=== PATIENT | female | born 1945 | race Asian ===

== ENCOUNTER → 2016-09-23 | Outpatient (CLI) | payer MEDICARE, OTHER | LOC: RAD 07:57 | PROVIDERS: ATTEND Internal Medicine | DX: C34.12 Malignant neoplasm of upper lobe, left bronchus or lung (principal) | CPT/HCPCS: 71260; 82565 ==

== ENCOUNTER → 2016-10-13 | Outpatient (CLI) | payer MEDICARE, OTHER | LOC: WI 18:04 | PROVIDERS: ATTEND Internal Medicine | DX: C34.12 Malignant neoplasm of upper lobe, left bronchus or lung (principal) | CPT/HCPCS: 78815; A9552 ==

== ENCOUNTER → 2016-11-13 | Outpatient (CLI) | payer MEDICARE, OTHER ==
[~2016-11-13] MED LIST: ALBUTEROL SULFATE 0.083% NEB 2.5 MG/3 ML AMPUL NEB ONE
--- NOTE | 2016-11-15 12:03 | PULMONARY FUNCTION TEST ---
DATE OF SERVICE: 11/13/2016 THE VITAL CAPACITY IS SEVERELY DECREASED. THE EXPIRATORY FLOW RATES ARE SEVERELY DECREASED. THE FEV1/VC IS 66%, PREDICTED: 82% LUNG VOLUMES BY NITROGEN WASH OUT METHOD SHOW: TLC IS 87% OF PREDICTED FRC IS 113% OF PREDICTED RV IS 149% OF PREDICTED THE DLCO IS 9.5, 66% OF PREDICTED. THE RV/TLC RATIO IS 69% PREDICTED 40% AFTER BRONCHODILATOR, EXPIRATORY FLOW RATES SHOW NO SIGNIFICANT CHANGE. IMPRESSION: GOOD PATIENT EFFORT. SEVERE OBSTRUCTIVE DEFECT. THE SEVERE INCREASE IN RV/TLC RATIO INDICATES SIGNIFICANT AIR TRAPPING. DIFFUSING CAPACITY IS MODERATELY DECREASED. CC: LATASHA ANGULO MD > JOSE M
== END ==
LOC: RT 12:14
PROVIDERS: ATTEND Obstetrics & Gynecology
DX: R91.8 Other nonspecific abnormal finding of lung field (principal)
CPT/HCPCS: 94729 ×2; 94727 ×2; 94060 ×2; A9270

== ENCOUNTER → 2017-06-17 | Outpatient (CLI) | payer MEDICARE, OTHER ==
--- NOTE | 2017-06-17 15:55 | WOMENS IMAGING REPORT ---
EXAM DESCRIPTION: 3D SCREENING MAMMO BILAT COMPLETED DATE/TIME: 06/17/2017 3:07 pm REASON FOR STUDY: ROUTINE SCREENING; Z12.31 Z12.31 ENCNTR SCREEN MAMMOGRAM FOR MALIGNANT NEOPLASM O F ROMAIN COMPARISON: Multiple since 2013 TECHNIQUE: Standard craniocaudal and mediolateral oblique views of each breast recorded using digita l acquisition and breast tomosynthesis. LIMITATIONS: None. FINDINGS: No masses, calcifications or architectural distortion. No areas of suspicion. Read with the assistance of CAD. .[facility] - R2 Cenova Version 1.3 .[facility] - R2 Cenova Version 1.3 .[facility] - R2 Cenova Version 2.4 .[facility] - R2 Cenova Version 2.4 .[facility] - R2 [employer] Loader Version 9.2 IMPRESSION: NORMAL MAMMOGRAM. BIRADS 1. BREAST DENSITY: d. The breasts are extremely dense, which lowers the sensitivity of mammography. BIRAD: 1 NEGATIVE RECOMMENDATION: ROUTINE SCREENING COMMENT: The patient has been notified of the results by letter per SA requirements. Additional no tification policies are in place for contacting patient with suspicious or incomplete findings. Quality ID #[id number]: The [employer] recommends an annual screening mammogram for women aged 40 years or over. This facility utilizes a reminder system to ensure that all patients receive reminder letters, and/or direct phone calls for appointments. This includes reminders for routine scr eening mammograms, diagnostic mammograms, or other Breast Imaging Interventions when appropriate. Th is patient will be placed in the appropriate reminder system. The [employer] [employer] (ACR) has developed recommendations for screening MRI of the breast s in certain patient populations, to be used in conjunction with mammography. Breast MRI surveillanc e may be appropriate for women with more than 20% lifetime risk of developing breast cancer as deter mined by genetic testing, significant family history of the disease, or history of mantle radiation f or Hodgkins Disease. ACR Practice Guidelines 2008. DBT Technology DBT is a type of tomographic mammography. With conventional mammography, overlapping breast tissue ma y make lesions difficult to detect, even with good compression. DBT uses an x-ray tube that rotates a round the breast, taking images at different angles. These images are then combined to create thin sl ices of the breast that the radiologist can view as a 3D reconstruction. The [employer] unit can perform full-field digital mammograms (2D imaging); or DBT (3D imaging); or both, in a combination mode that quickly performs both the mammogram and the tomosynthesis scan while the breast is still compressed. PQRS 6045F: Fluoroscopic imaging is not utilized for breast tomosynthesis. TECHNICAL DOCUMENTATION: FINDING NUMBER: (1) ASSESSMENT: (1) JOB ID: [id number] [employer]- All Rights Reserved
== END ==
LOC: WI 14:54
PROVIDERS: ATTEND Internal Medicine
DX: Z12.31 Encounter for screening mammogram for malignant neoplasm of breast (principal)
CPT/HCPCS: 77063; G0202; 77067

== ENCOUNTER → 2017-08-06 | Outpatient (CLI) | payer MEDICARE, OTHER ==
--- NOTE | 2017-08-06 15:51 | WOMENS IMAGING REPORT ---
EXAM DESCRIPTION: BONE DENSITY HIP/SPINE COMPLETED DATE/TIME: 08/06/2017 10:51 am REASON FOR STUDY: OSTEOPROSIS; M81.0 M81.0 AGE-RELATED OSTEOPOROSIS W/O CURRENT PATHOLOGICAL FRAC COMPARISON: 04/05/2015 TECHNIQUE: Dual-Energy X-ray Absorptiometry (DEXA) of the AP Spine and Hip. LIMITATIONS: None. FINDINGS: LUMBAR SPINE: The bone mineral density (BMD) measured from L1-L4 in the AP projection correlates with a T-score of -2.5, previously -1.9, which is osteoporosis as defined by the World Health Organization. HIP: The bone mineral density (BMD) measured in the left hip correlates with a T-score of -3.2, previously -2.9, which is osteoporosis as defined by the World Health Organization. IMPRESSION: 1. LUMBAR SPINE: OSTEOPOROSIS. 2. HIP: OSTEOPOROSIS. COMMENT: The World Health Organization defines low BMD as follows: T-score: Normal: Greater than -1.0 Osteopenia: Between -1.0 and -2.5 Osteoporosis: Less than -2.5 without fractures Established osteoporosis: Less than -2.5 with fractures In general, you may wish to consider: Diagnosis Treatment Follow-up DEXA Normal BMD Prevention 2-3 years Osteopenia Prevention/Therapy 1-2 years Osteoporosis Therapy Yearly TECHNICAL DOCUMENTATION: JOB ID: [id number]- All Rights Reserved
== END ==
LOC: WI 10:13
PROVIDERS: ATTEND Internal Medicine
DX: M81.0 Age-related osteoporosis without current pathological fracture (principal)
CPT/HCPCS: 77080

== ENCOUNTER → 2017-08-17 | Outpatient (CLI) | payer MEDICARE, OTHER ==
--- NOTE | 2017-08-18 10:30 | RADIOLOGY REPORT (SQ) ---
EXAM DESCRIPTION: PET CT SKULL/THIGH COMPLETED DATE/TIME: 08/17/2017 5:51 pm REASON FOR STUDY: LUNG CANCER C34.12 MALIGNANT NEOPLASM OF UPPER LOBE, LEFT BRONCHUS OR GRAHAM COMPARISON: 05/11/2017 and 10/13/2016. RADIONUCLIDE AND DOSE: 10.0 mCi F18 FDG The route of agent administration: Intravenous FASTING BLOOD SUGAR: 81 mg/dl CONTRAST TYPE AND DOSE: No CT contrast given. TECHNIQUE: Blood glucose level was verified. Above dose of FDG was injected intravenously. 2-D seg mented attenuation correction images were obtained from the base of the skull to the midthighs. Nonc ontrast CT images were obtained for attenuation correction and fusion with emission images. CT image s were performed without oral or intravenous contrast and are not sensitive for parenchymal lesions. A series of overlapping emission PET images were obtained. Images reviewed and manipulated at [facility] work station by the radiologist. Images stored on PACS. LIMITATIONS: None. FINDINGS: HEAD AND NECK: No areas of abnormal metabolic activity in the soft tissues of the head and neck. CHEST: Again seen are surgical changes in the left lung. Previously seen masses along the surgical s utures with increased activity are no longer present. There are now a few scattered ground-glass nod ular densities in both lungs. Most of these demonstrate no increased activity or minimally above bas diogenes. The more prominent areas are in the right lung (image 71). 12 mm lesion with mean SUV 2.63 a nd maximum SUV 2.88. More posterior lesion measuring 11 mm with mean SUV 1.63 and maximum SUV 1.98. ABDOMEN AND PELVIS: No areas of abnormal metabolic activity in the abdomen or pelvis. Expected physi ologic activity is present in the genitourinary system and bowel. PROXIMAL LOWER EXTREMITIES: No areas of abnormal metabolic activity in the soft tissues of the lower extremities. BONES: No abnormal metabolic activity in the visualized skeleton. ADDITIONAL CT FINDINGS: No additional significant findings on the noncontrast CT images. OTHER: No other significant findings. IMPRESSION: PREVIOUSLY SEEN LESIONS WITH INCREASED ACTIVITY IN THE LEFT LUNG AT THE SURGICAL SITE AR E NO LONGER PRESENT. THERE ARE A FEW ILL-DEFINED GROUND-GLASS DENSITIES IN BOTH LUNGS DESCRIBED. MORE PROMINENT AREAS IN THE RIGHT LUNG HAVE MINIMALLY INCREASED ACTIVITY. THESE FINDINGS ARE NONSPE CIFIC AND COULD BE DUE TO ACUTE INFLAMMATION/ PNEUMONITIS. EARLY METASTATIC INVOLVEMENT CANNOT BE EX CLUDED. OTHERWISE NO OTHER SIGNIFICANT FINDINGS IN THE HEAD, NECK, ABDOMEN, OR PELVIS. TECHNICAL DOCUMENTATION: JOB ID: [id number] [employer]- All Rights Reserved
== END ==
LOC: RAD 15:28
PROVIDERS: ATTEND Internal Medicine
DX: C34.12 Malignant neoplasm of upper lobe, left bronchus or lung (principal)
CPT/HCPCS: 78815; A9552

== ENCOUNTER 2017-10-10 16:21 | Observation (INO) | payer MEDICARE, OTHER ==
[2017-10-10] MEDS ORDERED: ONDANSETRON HCL INJ/PF 4 MG/2 ML SDV IV ONE (16:57)
[2017-10-10] MEDS ORDERED: FENTANYL CITRATE INJ/PF 100 MCG/2 ML AMPUL IV ONE (16:57)
[2017-10-10] MEDS ORDERED: NORMAL SALINE 1000 ML 1,000 ML IV ONE (16:58)
--- NOTE | 2017-10-10 17:00 | ER Document Report ---
ED Medical Screen (RME) - General Chief Complaint: Vomiting Stated Complaint: VOMITING Time Seen by Provider: 10/10/17 16:53 Notes: RME DISCLOSURE I have seen this patient as part of a Rapid Medical Evaluation and, if applicable, placed any initially appropriate orders. The patient will be seen and fully evaluated, including a full history and physical exam, by a provider ( in Main ED or Fast Track) when a room becomes available. 71-year-old female stage IV liver cancer survivor here with complaints of nausea vomiting diarrhea abdominal pain ongoing for the past few days. states she has had some weight loss as well. She is unable to keep anything down. She is currently taking a chemotherapy pill to keep the cancer away. EXAM Moderate epigastric tenderness to palpation TRAVEL OUTSIDE OF THE [place] IN LAST 30 DAYS: No - Related Data Allergies/Adverse Reactions: No Known Allergies Allergy (Verified 10/10/17 16:24) Past Medical History - Past Medical History Cardiac Medical History: Reports: Hx Hypertension Denies: Hx Coronary Artery Disease, Hx Heart Attack Pulmonary Medical History: Denies: Hx Asthma, Hx Bronchitis, Hx COPD, Hx Pneumonia Neurological Medical History: Denies: Hx Cerebrovascular Accident, Hx Seizures GI Medical History: Denies: Hx Hepatitis, Hx Hiatal Hernia, Hx Ulcer Musculoskeltal Medical History: Denies Hx Arthritis Infectious Medical History: Denies: Hx Hepatitis Past Surgical History: Denies: Hx Hysterectomy, Hx Mastectomy, Hx Open Heart Surgery, Hx Pacemaker - Immunizations Hx Diphtheria, Pertussis, Tetanus Vaccination: No Physical Exam - Vital signs Vitals: Temp Pulse Resp BP Pulse Ox 97.6 F 59 L 14 144/83 H 95 10/10/17 16:28 10/10/17 16:28 10/10/17 16:28 10/10/17 16:28 10/10/17 16:28 Course - Vital Signs Vital signs: Temp Pulse Resp BP Pulse Ox 97.6 F 59 L 14 144/83 H 95 10/10/17 16:28 10/10/17 16:28 10/10/17 16:28 10/10/17 16:28 10/10/17 16:28
[2017-10-10 17:28] LABS: ABSOLUTE EOSINOPHILS # (AUTO) 0.2 10^3/uL (0.0-0.6); ABSOLUTE LYMPHOCYTES (AUTO) 0.6 10^3/uL (0.5-4.7); ABSOLUTE MONOCYTES (AUTO) 0.3 10^3/uL (0.1-1.4); ABSOLUTE NEUT (AUTO) 3.4 10^3/uL (1.7-8.2); BASOPHILS % (AUTO) 0.3 % (0-2); EOSINOPHILS % (AUTO) 4.3 % (0-6); HEMATOCRIT 37.9 % (36.0-47.0); HEMOGLOBIN 12.7 g/dL (12.0-15.5); LYMPHOCYTES % (AUTO) 13.4 % (13-45); MEAN CORPUSCULAR HEMOGLOBIN 32.5 pg (27.0-33.4); MEAN CORPUSCULAR HGB CONC 33.4 g/dL (32.0-36.0); MEAN CORPUSCULAR VOLUME 97 fl (80-97); PLATELET COUNT 241 10^3/uL (150-450); RED CELL DISTRIBUTION WIDTH 15.1 % (11.5-14.0); TOTAL CELLS COUNTED % (AUTO) 100 %; WHITE BLOOD COUNT 4.4 10^3/uL (4.0-10.5)
[2017-10-10 17:36] LABS: INTERNATIONAL RATION (INR) 0.93; PROTHROMBIN TIME 12.9 SEC (11.4-15.4)
[2017-10-10 17:37] LABS: PARTIAL THROMBOPLASTIN TIME 32.7 SEC (23.5-35.8)
[2017-10-10 17:52] LABS: ALANINE AMINOTRANSFERASE 63 U/L (9-52); ALBUMIN 4.1 g/dL (3.5-5.0); ALKALINE PHOSPHATASE 132 U/L (38-126); ANION GAP 8 (5-19); ASPARTATE AMINO TRANSFERASE 73 U/L (14-36); BILIRUBIN,DIRECT 0.1 mg/dL (0.0-0.4); BILIRUBIN,TOTAL 0.4 mg/dL (0.2-1.3); BLOOD UREA NITROGEN 24 mg/dL (7-20); CALCIUM 8.9 mg/dL (8.4-10.2); CARBON DIOXIDE 32 mmol/L (22-30); CHLORIDE 99 mmol/L (98-107); GLUCOSE 113 mg/dL (75-110); LIPASE 519.3 U/L (23-300); POTASSIUM 4.5 mmol/L (3.6-5.0); SODIUM 139.4 mmol/L (137-145); TOTAL PROTEIN 7.1 g/dL (6.3-8.2)
--- NOTE | 2017-10-10 18:25 | ER Document Report ---
ED General - General Chief Complaint: Vomiting Stated Complaint: VOMITING Time Seen by Provider: 10/10/17 16:53 Notes: 71-year-old female to the emergency department complaining of abdominal pain and weight loss. History of lung cancer. Began having nausea and vomiting in epigastric abdominal pain over the last couple of days. TRAVEL OUTSIDE OF THE [place] IN LAST 30 DAYS: No - HPI Onset/Duration: Intermittent, Worse Severity: Moderate Pain Level: 3 Associated symptoms: Nausea, Vomiting - Related Data Allergies/Adverse Reactions: No Known Allergies Allergy (Verified 10/10/17 16:24) Past Medical History - General Information source: Patient - Social History Smoking Status: Never Smoker Chew tobacco use (# tins/day): No Frequency of alcohol use: None Drug Abuse: None Lives with: Spouse/Significant other Family History: Reviewed & Not Pertinent Patient has suicidal ideation: No Patient has homicidal ideation: No - Past Medical History Cardiac Medical History: Reports: Hx Hypertension Denies: Hx Coronary Artery Disease, Hx Heart Attack Pulmonary Medical History: Denies: Hx Asthma, Hx Bronchitis, Hx COPD, Hx Pneumonia Neurological Medical History: Denies: Hx Cerebrovascular Accident, Hx Seizures Renal/ Medical History: Denies: Hx Peritoneal Dialysis GI Medical History: Denies: Hx Hepatitis, Hx Hiatal Hernia, Hx Ulcer Musculoskeltal Medical History: Denies Hx Arthritis Infectious Medical History: Denies: Hx Hepatitis Past Surgical History: Denies: Hx Hysterectomy, Hx Mastectomy, Hx Open Heart Surgery, Hx Pacemaker - Immunizations Hx Diphtheria, Pertussis, Tetanus Vaccination: No Hx Pneumococcal Vaccination: 04/05/15 Review of Systems - Review of Systems Constitutional: No symptoms reported EENT: No symptoms reported Cardiovascular: No symptoms reported Respiratory: No symptoms reported Gastrointestinal: Abdominal pain, Nausea, Vomiting Genitourinary: No symptoms reported Female Genitourinary: No symptoms reported Musculoskeletal: No symptoms reported Skin: No symptoms reported Hematologic/Lymphatic: No symptoms reported Neurological/Psychological: No symptoms reported Physical Exam - Vital signs Vitals: Temp Pulse Resp BP Pulse Ox 97.6 F 59 L 14 144/83 H 95 10/10/17 16:28 10/10/17 16:28 10/10/17 16:28 10/10/17 16:28 10/10/17 16:28 Interpretation: Normal - General General appearance: Appears well, Alert - HEENT Head: Normocephalic, Atraumatic Eyes: Normal Pupils: PERRL - Respiratory Respiratory status: No respiratory distress Chest status: Nontender Breath sounds: Normal Chest palpation: Normal - Cardiovascular Rhythm: Regular Heart sounds: Normal auscultation Murmur: No - Abdominal Inspection: Normal Distension: No distension Bowel sounds: Normal Tenderness: Tender - Mild tenderness in the epigastric region Organomegaly: No organomegaly - Back Back: Normal, Nontender - Extremities General upper extremity: Normal inspection, Nontender, Normal color, Normal ROM , Normal temperature General lower extremity: Normal inspection, Nontender, Normal color, Normal ROM , Normal temperature, Normal weight bearing. No: Kelli's sign - Neurological Neuro grossly intact: Yes Cognition: Normal Orientation: AAOx4 Agusto Coma Scale Eye Opening: Spontaneous Agusto Coma Scale Verbal: Oriented Tye Coma Scale Motor: Obeys Commands Agusto Coma Scale Total: 15 Speech: Normal Motor strength normal: LUE, RUE, LLE, RLE Sensory: Normal - Psychological Associated symptoms: Normal affect, Normal mood - Skin Skin Temperature: Warm Skin Moisture: Dry Skin Color: Normal Course - Re-evaluation Re-evalutation: 10/10/17 19:15 Patient with history of lung cancer. Evidence on labs of mild pancreatitis. CT scan ordered. 10/10/17 20:56 She with mild pancreatitis. CT scan unremarkable. Chest x-ray unremarkable. Will get ultrasound as well to make sure there is no surgical issue with the gallbladder but in the setting of negative LFTs unlikely. Will consult with hospitalist for admission for IV hydration, pain control and repeat labs in the morning. 10/10/17 20:57 10/10/17 21:55 Laboratory 10/10/17 10/10/17 10/10/17 17:20 17:20 17:20 WBC 4.4 RBC 3.90 Hgb 12.7 Hct 37.9 MCV 97 MCH 32.5 MCHC 33.4 RDW 15.1 H Plt Count 241 Seg Neutrophils % 76.0 Lymphocytes % 13.4 Monocytes % 6.0 Eosinophils % 4.3 Basophils % 0.3 Absolute Neutrophils 3.4 Absolute Lymphocytes 0.6 Absolute Monocytes 0.3 Absolute Eosinophils 0.2 Absolute Basophils 0.0 PT 12.9 INR 0.93 APTT 32.7 Sodium 139.4 Potassium 4.5 Chloride 99 Carbon Dioxide 32 H Anion Gap 8 BUN 24 H Creatinine 0.89 Est GFR ( Amer) > 60 Est GFR (Non-Af Amer) > 60 Glucose 113 H Calcium 8.9 Total Bilirubin 0.4 Direct Bilirubin 0.1 Neonat Total Bilirubin Not Reportable Neonat Direct Bilirubin Not Reportable Neonat Indirect Bili Not Reportable AST 73 H ALT 63 H Alkaline Phosphatase 132 H Troponin I Total Protein 7.1 Albumin 4.1 Lipase 519.3 H 10/10/17 17:20 WBC RBC Hgb Hct MCV MCH MCHC RDW Plt Count Seg Neutrophils % Lymphocytes % Monocytes % Eosinophils % Basophils % Absolute Neutrophils Absolute Lymphocytes Absolute Monocytes Absolute Eosinophils Absolute Basophils PT INR APTT Sodium Potassium Chloride Carbon Dioxide Anion Gap BUN Creatinine Est GFR ( Amer) Est GFR (Non-Af Amer) Glucose Calcium Total Bilirubin Direct Bilirubin Neonat Total Bilirubin Neonat Direct Bilirubin Neonat Indirect Bili AST ALT Alkaline Phosphatase Troponin I < 0.012 Total Protein Albumin Lipase Abdomen/Pelvis CT 10/10/17 16:58 IMPRESSION: NO ACUTE FINDING IN THE ABDOMEN OR PELVIS ON CT SCAN WITH IV CONTRAST. Chest X-Ray 10/10/17 19:15 IMPRESSION: NO ACUTE RADIOGRAPHIC FINDING IN THE CHEST. Abdomen Ultrasound 10/10/17 19:50 IMPRESSION: No acute findings. 10/10/17 22:29 Hospitalist in room at this time with the patient. Still feel that patient needs to be admitted for IV hydration, fluid advancement. - Vital Signs Vital signs: Temp Pulse Resp BP Pulse Ox 97.6 F 59 L 14 144/83 H 95 10/10/17 16:28 10/10/17 16:28 10/10/17 16:28 10/10/17 16:28 10/10/17 16:28 - Laboratory Result Diagrams: 10/10/17 17:20 10/10/17 17:20 Laboratory results interpreted by me: 10/10/17 10/10/17 17:20 17:20 RDW 15.1 H Carbon Dioxide 32 H BUN 24 H Glucose 113 H AST 73 H ALT 63 H Alkaline Phosphatase 132 H Lipase 519.3 H - EKG Interpretation by Mi EKG shows normal: Sinus rhythm, Swain, Intervals, QRS Complexes. abnormal: ST-T Waves Additional EKG results interpreted by mi: 10/10/17 19:18 T-wave inversion in lead III. No change from prior. Discharge - Discharge Clinical Impression: Pancreatitis Qualifiers: Chronicity: acute Pancreatitis type: unspecified pancreatitis type Acute pancreatitis complication: no infection or necrosis Qualified Code(s): K85.90 - Acute pancreatitis without necrosis or infection, unspecified Condition: Good Disposition: ADMITTED INPATIENT Admitting Provider: Hospitalist Unit Admitted: Medical Floor - [facility]
--- NOTE | 2017-10-10 19:44 | RADIOLOGY REPORT (SQ) ---
EXAM DESCRIPTION: CT ABD/PELVIS WITH IV ONLY COMPLETED DATE/TIME: 10/10/2017 7:03 pm REASON FOR STUDY: n/v/d abd pain; liver cancer; eval etiology COMPARISON: 09/23/2016 TECHNIQUE: CT scan of the abdomen and pelvis performed using helical scanning technique with dynamic intravenous contrast injection. No oral contrast. Images reviewed with lung, soft tissue, and bone windows. Reconstructed coronal and sagittal MPR images reviewed. Delayed images for evaluation of the urinary system also acquired. All images stored on PACS. All CT scanners at this facility use dose modulation, iterative reconstruction, and/or weight based d osing when appropriate to reduce radiation dose to as low as reasonably achievable (ALARA). [facility]: Dose Right [facility]: CareDose [facility]: Dose Right [facility]: Teradose 4D [facility]: Smart Inhance Media RENAL FUNCTION: GFR > 60. RADIATION DOSE: CT Rad equipment meets quality standard of care and radiation dose reduction techniq ues were employed. CTDIvol: 4.8 - 4.9 mGy. DLP: 453 mGy-cm.. LIMITATIONS: None. FINDINGS: LOWER CHEST: Minimal basilar subsegmental atelectasis. LIVER: Normal size. 6 mm right lobe cyst. No dilated ducts. SPLEEN: Normal size. No focal lesions. PANCREAS: No masses. No significant calcifications. No adjacent inflammation or peripancreatic fluid collections. Pancreatic duct not dilated. GALLBLADDER: No identified stones by CT criteria. No inflammatory changes to suggest cholecystitis. ADRENAL GLANDS: No significant masses or asymmetry. RIGHT KIDNEY AND URETER: No solid masses. No significant calcifications. No hydronephrosis or hyd roureter. LEFT KIDNEY AND URETER: No solid masses. No significant calcifications. No hydronephrosis or hydr oureter. AORTA AND VESSELS: No aneurysm. No dissection. Renal arteries, SMA, celiac without stenosis. RETROPERITONEUM: No retroperitoneal adenopathy, hemorrhage or masses. BOWEL AND PERITONEAL CAVITY: No masses or inflammatory changes. No free fluid or peritoneal masses. APPENDIX: Normal. PELVIS: No mass. No free fluid. Normal bladder. ABDOMINAL WALL: No masses. No hernias. BONES: No acute findings. OTHER: No other significant finding. IMPRESSION: NO ACUTE FINDING IN THE ABDOMEN OR PELVIS ON CT SCAN WITH IV CONTRAST. TECHNICAL DOCUMENTATION: JOB ID: [id number] Quality ID # [id number]: Final reports with documentation of one or more dose reduction techniques (e.g., Au tomated exposure control, adjustment of the mA and/or kV according to patient size, use of iterative reconstruction technique) 2010 [employer]- All Rights Reserved Reading location - IP/workstation name: [email or web address]
[2017-10-10] MEDS ORDERED: DEXTROSE 5%-1/2 NORMAL SALINE 1,000 ML IV ONE (19:50)
--- NOTE | 2017-10-10 19:59 | RADIOLOGY REPORT (SQ) ---
EXAM DESCRIPTION: CHEST SINGLE VIEW COMPLETED DATE/TIME: 10/10/2017 7:32 pm REASON FOR STUDY: sob COMPARISON: 09/23/[address] EXAM PARAMETERS: NUMBER OF VIEWS: One view. TECHNIQUE: Single frontal radiographic view of the chest acquired. RADIATION DOSE: NA LIMITATIONS: None. FINDINGS: LUNGS AND PLEURA: No acute opacities. No pneumothorax. No pleural effusion. MEDIASTINUM AND HILAR STRUCTURES: Stable. HEART AND VASCULAR STRUCTURES: Stable. BONES: No acute findings. HARDWARE: Surgical clips in suture material in the left upper lobe. OTHER: No other significant finding. IMPRESSION: NO ACUTE RADIOGRAPHIC FINDING IN THE CHEST. TECHNICAL DOCUMENTATION: JOB ID: [id number] 2010 [employer]- All Rights Reserved Reading location - IP/workstation name: [email or web address]
--- NOTE | 2017-10-10 21:03 | EKG REPORT ---
SEVERITY:- ABNORMAL ECG - SINUS RHYTHM ABNORMAL T, CONSIDER ISCHEMIA, INFERIOR LEADS : Confirmed by: Jeanntete Cooper 10-Oct-2017 21:02:19
--- NOTE | 2017-10-10 21:53 | RADIOLOGY REPORT (SQ) ---
EXAM DESCRIPTION: U/S ABDOMEN LIMITED W/O DOP COMPLETED DATE/TIME: 10/10/2017 9:01 pm REASON FOR STUDY: EPIGASTRIC AND RUQ PAIN COMPARISON: None. TECHNIQUE: Dynamic and static grayscale images acquired of the abdomen and recorded on PACS. Additio nal selected color Doppler and spectral images recorded. LIMITATIONS: None. FINDINGS: PANCREAS: No masses. Visualized pancreatic duct normal caliber. LIVER: No masses. Echotexture normal. LIVER VASCULATURE: Normal directional flow of the main portal vein and hepatic veins. GALLBLADDER: No stones. Normal wall thickness. No pericholecystic fluid. ULTRASOUND-DETECTED HARLEY'S SIGN: Negative. INTRAHEPATIC DUCTS AND COMMON DUCT: CBD and intrahepatic ducts normal caliber. No filling defects. INFERIOR VENA CAVA: Normal flow. AORTA: No aneurysm. RIGHT KIDNEY: Normal size. Normal echogenicity. No solid or suspicious masses. No hydronephrosis. No calcifications. PERITONEAL AND RIGHT PLEURAL SPACE: No ascites or effusions. OTHER: No other significant findings. IMPRESSION: No acute findings. TECHNICAL DOCUMENTATION: JOB ID: [id number] [place]-[id number] 2010 [employer]- All Rights Reserved Reading location - IP/workstation name: [email or web address]
[2017-10-10] MEDS ORDERED: FAMOTIDINE INJ/PF 20 MG/2 ML SDV IV ONE (22:28)
[2017-10-10] MEDS ORDERED: ONDANSETRON HCL INJ/PF 4 MG/2 ML SDV IV PRN (22:49)
[2017-10-10] MEDS ORDERED: DRONABINOL 2.5 MG CAPSULE PO PRN (22:56)
[2017-10-10] MEDS ORDERED: MIRTAZAPINE 15 MG TABLET PO ONE (22:57)
[2017-10-10] MEDS ORDERED: PANTOPRAZOLE SODIUM 40 MG VIAL IV SCH (23:00)
--- NOTE | 2017-10-10 23:15 | PDOC H&P ---
History of Present Illness Admission Date/PCP: 10/10/17 22:08 History of Present Illness: MARTINEZ ESPINAL is a very pleasant but unfortunate 71 year old Spanish female patient who presented with chief complaint of nausea vomiting and abdominal pain. Of note patient diagnosed to his lung cancer in 2014 and she is status post surgical resection and chemo. Patient has had chronic nausea and vomiting since 2014 but the last several days it gets worse. She had associated loss of appetite and progressive weight loss. Her initial workup shows lipase of 519. Her liver chemistries within normal limits. She has also CT scan of the abdomen and ultrasound was reported no sign of inflammation of the pancreas. Patient denies any fever chills palpitation or diaphoresis. She does not have any hematochezia or melanotic stool. She does not have any urinary complaints. She has occasional dizziness but no headache or blurred vision. Patient is going to be admitted for observation to hydrate her and check her lipase level in a.m. Past Medical History Cardiac Medical History: Reports: Hypertension Denies: Coronary Artery Disease, Myocardial Infarction Pulmonary Medical History: Denies: Asthma, Bronchitis, Chronic Obstructive Pulmonary Disease (COPD), Pneumonia Neurological Medical History: Denies: Seizures Malignancy History Note: Lung cancer GI Medical History: Denies: Hepatitis, Hiatal Hernia Musculoskeltal Medical History: Denies: Arthritis Hematology: Denies: Anemia, Sickle Cell Disease Past Surgical History Past Surgical History: Reports: Other - Partial lobectomy of the right leg Denies: Amputation, Hysterectomy, Mastectomy, Pacemaker Social History Lives with: Spouse/Significant other Smoking Status: Never Smoker Frequency of Alcohol Use: None Hx Recreational Drug Use: No Hx Prescription Drug Abuse: No Family History Family History: Reviewed & Not Pertinent, Malignancy Parental Family History Reviewed: Yes Children Family History Reviewed: Yes Sibling(s) Family History Reviewed.: Yes Medication/Allergy Home Medications: Calcium Carbonate/Vitamin D3 [Calcium 500-Vit D3 400 Tablet] 1 tab PO BID Ergocalciferol (Vitamin D2) [Vitamin D2] 50,000 unit PO MO@1000 04/13/15 Esomeprazole Magnesium [Nexium] 40 mg PO DAILY 04/13/15 Folic Acid 1 mg PO DAILY 04/13/15 Levothyroxine Sodium [Synthroid] 75 mcg PO Q6AM 04/13/15 Buprenorphine [Butrans] 1 patch TOP FR@1000 10/10/17 Carboxymethylcellulose Sodium [Refresh Celluvisc Drops] 1 drop OU BID 10/10/17 Cyclosporine 0.05% Oph Emulsio [Restasis 0.05% Oph Emulsion Pf 0.4 ml] 1 drop OU DAILY 10/10/17 Erlotinib HCl [Tarceva 150 Mg Tablet] 150 mg PO DAILY 10/10/17 Olopatadine HCl [Pazeo] 1 drop OU DAILY 10/10/17 Allergies/Adverse Reactions: No Known Allergies Allergy (Verified 10/10/17 16:24) Review of Systems Constitutional: PRESENT: as per HPI, fatigue, weakness, weight loss Gastrointestinal: PRESENT: nausea, vomiting Musculoskeletal: ABSENT: joint swelling Neurological: ABSENT: abnormal gait, abnormal speech, confusion, dizziness, focal weakness, syncope Physical Exam Vital Signs: Temp Pulse Resp BP Pulse Ox 97.6 F 59 L 14 144/83 H 95 10/10/17 16:28 10/10/17 16:28 10/10/17 16:28 10/10/17 16:28 10/10/17 16:28 General appearance: PRESENT: other - Chronically sick looking and emaciated Head exam: PRESENT: other - Bitemporal muscle wasting Mouth exam: PRESENT: dry mucosa Respiratory exam: PRESENT: decreased breath sounds - Right leg GI/Abdominal exam: PRESENT: normal bowel sounds, soft. ABSENT: distended, guarding, mass, organolmegaly, rebound, tenderness Musculoskeletal exam: PRESENT: other - Wasted Results Impressions: Abdomen/Pelvis CT 10/10/17 16:58 IMPRESSION: NO ACUTE FINDING IN THE ABDOMEN OR PELVIS ON CT SCAN WITH IV CONTRAST. Chest X-Ray 10/10/17 19:15 IMPRESSION: NO ACUTE RADIOGRAPHIC FINDING IN THE CHEST. Abdomen Ultrasound 10/10/17 19:50 IMPRESSION: No acute findings. Assessment & Plan - Diagnosis (1) Pancreatitis Qualifiers: Pancreatitis type: unspecified pancreatitis type Is this a current diagnosis for this admission?: Yes Plan: Cautious hydration and pain control (2) Dehydration Is this a current diagnosis for this admission?: Yes Plan: Patient has been getting normal saline at a rate of 45 mL/h. (3) Malnutrition of moderate degree Is this a current diagnosis for this admission?: Yes Plan: Patient has moderate to severe malnutrition which is associated with her lung cancer. I started her on Marinol and Remeron to boost her appetite. She needs consult with independent contractor. (4) Lung cancer Qualifiers: Laterality: right Is this a current diagnosis for this admission?: Yes Plan: Patient is status post partial nephrectomy and chemo. Management per her oncologist. - Time Critical Time spent with patient: 25-34 minutes Within: within 48 hours
[2017-10-10] MEDS ORDERED: PANTOPRAZOLE SODIUM 40 MG VIAL IV ONE (23:45)
[2017-10-10] MEDS: NORMAL SALINE 1000 ML 1,000 ML IV PRN (23:56)
[2017-10-11 05:54] LABS: ANION GAP 6 (5-19); BLOOD UREA NITROGEN 18 mg/dL (7-20); CALCIUM 7.7 mg/dL (8.4-10.2); CARBON DIOXIDE 29 mmol/L (22-30); CHLORIDE 109 mmol/L (98-107); GLUCOSE 72 mg/dL (75-110); LIPASE 113.8 U/L (23-300); POTASSIUM 4.5 mmol/L (3.6-5.0); SODIUM 143.5 mmol/L (137-145)
[2017-10-11] MEDS ORDERED: PROMETHAZINE HCL INJ 25 MG/1 ML VIAL IV ONE (09:00)
[2017-10-11] MEDS: ENOXAPARIN SODIUM INJ 30 MG/0.3 ML DISP.SYRIN SUBCUT SCH (09:07)
[2017-10-11] MEDS ORDERED: PROMETHAZINE HCL INJ 25 MG/1 ML VIAL IV PRN (09:40)
[2017-10-11] MEDS ORDERED: MORPHINE SULFATE 10 MG/ML INJ IV PRN (09:41)
[2017-10-11] MEDS ORDERED: OLANZAPINE INJ/PF 10 MG SDV IM ONE (12:00)
--- NOTE | 2017-10-11 17:57 | PDOC PROGRESS REPORT ---
Subjective Progress Note for:: 10/11/17 Subjective:: Patient relates that still having nausea and vomiting. Chantelle did not work according to the nurse. She continues having stomach pain. is at bedside and states that patient hardly eats because of pain. Review of system All organ systems evaluated and negative except as in subjective All significant diagnostics and laboratories had been reviewed Reason For Visit: NAUSEA, VOMITING, PANCREATITIS Physical Exam Vital Signs: Temp Pulse Resp BP Pulse Ox 98.1 F 50 L 16 92/55 L 100 10/11/17 16:00 10/11/17 16:00 10/11/17 16:00 10/11/17 16:00 10/11/17 16:00 Intake & Output 10/10/17 10/11/17 10/12/17 06:59 06:59 06:59 Intake Total 225 2769 Output Total 1 Balance 224 2769 Weight 41.73 kg General appearance: PRESENT: cooperative, other - cachectic Head exam: PRESENT: atraumatic, normocephalic Eye exam: PRESENT: conjunctiva pink, EOMI, PERRLA Ear exam: PRESENT: normal external ear exam Mouth exam: PRESENT: moist Neck exam: PRESENT: full ROM. ABSENT: JVD, lymphadenopathy, tenderness Respiratory exam: PRESENT: clear to auscultation erick Cardiovascular exam: PRESENT: RRR. ABSENT: diastolic murmur, systolic murmur Vascular exam: PRESENT: normal capillary refill GI/Abdominal exam: PRESENT: normal bowel sounds, soft, tenderness Extremities exam: PRESENT: full ROM. ABSENT: pedal edema Musculoskeletal exam: PRESENT: ambulatory Neurological exam: PRESENT: alert, awake, oriented to person, oriented to place , oriented to time, oriented to situation, CN II-XII grossly intact Psychiatric exam: PRESENT: appropriate affect, normal mood Skin exam: PRESENT: intact, normal color Results Laboratory Results: 10/11/17 04:13 10/11/17 04:13 Sodium 143.5 Potassium 4.5 Chloride 109 H Carbon Dioxide 29 Anion Gap 6 BUN 18 Creatinine 0.78 Est GFR ( Amer) > 60 Est GFR (Non-Af Amer) > 60 Glucose 72 L Calcium 7.7 L Lipase 113.8 Impressions: Abdomen/Pelvis CT 10/10/17 16:58 IMPRESSION: NO ACUTE FINDING IN THE ABDOMEN OR PELVIS ON CT SCAN WITH IV CONTRAST. Chest X-Ray 10/10/17 19:15 IMPRESSION: NO ACUTE RADIOGRAPHIC FINDING IN THE CHEST. Abdomen Ultrasound 10/10/17 19:50 IMPRESSION: No acute findings. Assessment & Plan - Diagnosis (1) Dehydration Is this a current diagnosis for this admission?: Yes Plan: Continue hydration (2) Vomiting Qualifiers: Vomiting Intractability: intractable Nausea presence: with nausea Is this a current diagnosis for this admission?: Yes Plan: Try zyprexa and phenergan (3) Acute kidney injury Is this a current diagnosis for this admission?: Yes Plan: Continue hydration. Improved (4) Severe protein-calorie malnutrition Is this a current diagnosis for this admission?: Yes Plan: Consult dieititian. Try zyprexa to increase appetite and decrease nausea (5) Hx of cancer of lung Is this a current diagnosis for this admission?: Yes Plan: In remission - Time Time Spent with patient: 15-24 minutes Medications reviewed and adjusted accordingly: Yes Anticipated discharge: Home with Homehealth Within: within 48 hours - Inpatient Certification Based on my medical assessment, after consideration of the patient's comorbidities, presenting symptoms, or acuity I expect that the services needed warrant INPATIENT care.: Yes I certify that my determination is in accordance with my understanding of Medicare's requirements for reasonable and necessary INPATIENT services [42 CFR 412.3e].: Yes Medical Necessity: Need Close Monitoring Due to Risk of Patient Decompensation, Need For IV Fluids
[2017-10-11] MEDS ORDERED: MIRTAZAPINE 15 MG TABLET PO SCH (22:00)
[2017-10-11] MEDS ORDERED: OLANZAPINE INJ/PF 10 MG SDV IM SCH (22:00)
[2017-10-11] MEDS ORDERED: PANTOPRAZOLE SODIUM 40 MG VIAL IV SCH (22:00)
[2017-10-12] MEDS: NORMAL SALINE 1000 ML 1,000 ML IV PRN (01:27)
[2017-10-12 08:10] VITALS: BP 113/59
[2017-10-12] MEDS: ENOXAPARIN SODIUM INJ 30 MG/0.3 ML DISP.SYRIN SUBCUT SCH (09:16)
[2017-10-12] MEDS ORDERED: OLANZAPINE 5 MG TAB.RAPDIS PO ONE (11:30)
--- NOTE | 2017-10-12 14:32 | PDOC DISCHARGE SUMMARY ---
General - Admit/Disc Date/PCP Admission Date/Primary Care Provider: 10/10/17 22:08 Discharge Date: 10/12/17 - Discharge Diagnosis (1) Pancreatitis Is this a current diagnosis for this admission?: Yes (2) Acute kidney injury Is this a current diagnosis for this admission?: Yes (3) Dehydration Is this a current diagnosis for this admission?: Yes (4) Vomiting Is this a current diagnosis for this admission?: Yes (5) Severe protein-calorie malnutrition Is this a current diagnosis for this admission?: Yes (6) Hx of cancer of lung Is this a current diagnosis for this admission?: Yes - Additional Information Resuscitation Status: Full Code Discharge Diet: Regular Discharge Activity: Activity As Tolerated Prescriptions: Mirtazapine [Remeron 15 mg Tablet] 7.5 mg PO QHS #30 tablet Olanzapine [Zyprexa Zydis 5 mg Odt Tablet] 2.5 mg PO BID #30 tab.rapdis Home Medications: Calcium Carbonate/Vitamin D3 [Calcium 500-Vit D3 400 Tablet] 1 tab PO BID Ergocalciferol (Vitamin D2) [Vitamin D2] 50,000 unit PO MO@1000 04/13/15 Esomeprazole Magnesium [Nexium] 40 mg PO DAILY 04/13/15 Folic Acid 1 mg PO DAILY 04/13/15 Levothyroxine Sodium [Synthroid] 75 mcg PO Q6AM 04/13/15 Buprenorphine [Butrans] 1 patch TOP FR@1000 10/10/17 Carboxymethylcellulose Sodium [Refresh Celluvisc Drops] 1 drop OU BID 10/10/17 Cyclosporine 0.05% Oph Emulsio [Restasis 0.05% Oph Emulsion Pf 0.4 ml] 1 drop OU DAILY 10/10/17 Erlotinib HCl [Tarceva 150 mg Tablet] 150 mg PO DAILY 10/10/17 Olopatadine HCl [Pazeo] 1 drop OU DAILY 10/10/17 Mirtazapine [Remeron 15 mg Tablet] 7.5 mg PO QHS #30 tablet 10/12/17 Olanzapine [Zyprexa Zydis 5 mg Odt Tablet] 2.5 mg PO BID #30 tab.rapdis History of Present Illness History of Present Illness: MARTINEZ ESPINAL is a 71 year old female is a very pleasant but unfortunate 71 year old [place] patient who presented with chief complaint of nausea vomiting and abdominal pain. Of note patient diagnosed was diagnosed with lung cancer in 2015 and she is status post surgical resection and chemo. Patient has had chronic nausea and vomiting since 2015 but the last several days is worse. She had associated loss of appetite and progressive weight loss. Her initial workup shows lipase of 519. Her liver chemistries within normal limits. She has also CT scan of the abdomen and ultrasound was reported no sign of inflammation of the pancreas. Patient denies any fever chills palpitation or diaphoresis. She did not have any hematochezia or melanotic stool. She did not have any urinary complaints. She had occasional dizziness but no headache or blurred vision. Patient was admitted for observation Hospital Course Hospital Course: Patient was admitted initially for observation and required to be transitioned to inpatient as she continued with poor appetite, abdominal pain and nausea. Lipase level had normalized the following day. As this is an exacerbation of a chronic problem we prompted to place patient on Zyprexa IM. Patient then reported improvement of nausea as well as pain and had been able to tolerate oral. Patient also reported improvement in her sleep. Since improved and achieving maximum benefit of hospitalization stay prompted to discharge. Physical Exam Vital Signs: Temp Pulse Resp BP Pulse Ox 99.1 F 57 L 16 113/59 L 98 10/12/17 07:51 10/12/17 07:51 10/12/17 07:51 10/12/17 07:51 10/12/17 07:51 Intake & Output 10/11/17 10/12/17 10/13/17 06:59 06:59 06:59 Intake Total 225 4910 Output Total 1 Balance 224 4910 Weight 41.73 kg 48.4 kg General appearance: PRESENT: cooperative, thin Head exam: PRESENT: atraumatic, normocephalic Eye exam: PRESENT: conjunctiva pink, EOMI, PERRLA Mouth exam: PRESENT: moist Neck exam: PRESENT: full ROM. ABSENT: JVD, lymphadenopathy Respiratory exam: PRESENT: clear to auscultation erick Cardiovascular exam: PRESENT: RRR. ABSENT: diastolic murmur, systolic murmur Vascular exam: PRESENT: normal capillary refill GI/Abdominal exam: PRESENT: normal bowel sounds, soft. ABSENT: tenderness Extremities exam: PRESENT: full ROM. ABSENT: pedal edema Musculoskeletal exam: PRESENT: ambulatory Neurological exam: PRESENT: alert, awake, oriented to person, oriented to place , oriented to time, oriented to situation, CN II-XII grossly intact Psychiatric exam: PRESENT: appropriate affect, normal mood Skin exam: PRESENT: intact, normal color Results Laboratory Results: 10/11/17 04:13 Impressions: Abdomen/Pelvis CT 10/10/17 16:58 IMPRESSION: NO ACUTE FINDING IN THE ABDOMEN OR PELVIS ON CT SCAN WITH IV CONTRAST. Chest X-Ray 10/10/17 19:15 IMPRESSION: NO ACUTE RADIOGRAPHIC FINDING IN THE CHEST. Abdomen Ultrasound 10/10/17 19:50 IMPRESSION: No acute findings. Qualifiers - * PATEINT BEING DISCHARGED WITH ANY OF THE FOLLOWING DIAGNOSIS?: No Plan Discharge Plan: Discharge home Time Spent: Less than 30 Minutes
[2017-10-12] MEDS ORDERED: OLANZAPINE 5 MG TAB.RAPDIS PO SCH (18:00)
== END 2017-10-12 11:00 | disposition home or self-care (01) ==
LOC: ER 16:21 → INTOOBSV 22:08 → EH 22:08 → 4N 23:34
PROVIDERS: ADMIT Internal Medicine; ATTEND Internal Medicine
DX: K85.90 Acute pancreatitis without necrosis or infection, unspecified (principal); E86.0 Dehydration; N17.9 Acute kidney failure, unspecified; E43 Unspecified severe protein-calorie malnutrition; I10 Essential (primary) hypertension; Z85.118 Personal history of other malignant neoplasm of bronchus and lung; R10.13 Epigastric pain; R11.2 Nausea with vomiting, unspecified
CPT/HCPCS: 93005; 99285; 96361; 96374; 96375; 36415; 83690 ×2; 85025; 85610; 85730; 80048; 80053; 84484; 71045; 76705; 74177; 93010; A9270; J3010; C9113 ×2; J2550; J2405 ×2; J1650; J7030 ×2; S0028; J3490; S0164

== ENCOUNTER 2017-11-04 12:26 | Day surgery (SDC) | payer MEDICARE, OTHER ==
[~2017-11-04 12:26] MED LIST changes: -ALBUTEROL SULFATE 0.083% NEB 2.5 MG/3 ML AMPUL NEB ONE; +DIPHENHYDRAMINE HCL 50 MG/ML VIAL ONE; +EPINEPHRINE INJ 1 MG/10 ML DISP.SYRIN ONE; +FENTANYL CITRATE INJ/PF 100 MCG/2 ML AMPUL ONE; +FLUMAZENIL INJ 0.5 MG/5 ML VIAL ONE; +GLUCAGON,HUMAN RECOMB 1 MG INJ ONE; +MIDAZOLAM 2 MG/2 ML INJ ONE; +NALOXONE HCL INJ/PF 0.4 MG/1 ML SDV ONE; +ONDANSETRON HCL INJ/PF 4 MG/2 ML SDV ONE
--- NOTE | 2017-11-04 12:58 | Operative Report ---
Operative Report DATE OF SURGERY: 11/04/17 Operative Report: The risks benefits and alternatives of the procedure explained to the patient in detail and informed consent is obtained.A GIF Olympus video scope was inserted into the patient's mouth and hypopharynx, the esophagus is identified intubated and insufflated ,the scope was then advanced through the esophagus stomach and duodenum, retroflexion maneuver is done, the esophagus stomach and first and second portions of the duodenum examined PREOPERATIVE DIAGNOSIS: Epigastric pain, nausea vomiting, early satiety POSTOPERATIVE DIAGNOSIS: Gastritis biopsy rule out Helicobacter pylori. Hiatal hernia OPERATION: EGD with biopsy SURGEON: RED ACOSTA ANESTHESIA: Moderate Sedation - 2 mg of Versed. Conscious sedation monitoring time 30 minutes. TISSUE REMOVED OR ALTERED: As noted above. COMPLICATIONS: None. ESTIMATED BLOOD LOSS: None. INTRAOPERATIVE FINDINGS: As noted above. PROCEDURE: Patient tolerated procedure well. No immediate postprocedure complications are noted. Patient discharged in good condition. Discharge date 11/04/2017. Discharge diet: Regular. Discharge activity: Regular. 2-3 week follow-up to discuss findings. Patient is instructed call the office or proceed to the emergency room should there be any further problems or questions. We will wait on pathology.
[2017-11-04 14:00] VITALS: BP 105/61
== END 2017-11-04 14:00 | disposition home or self-care (01) ==
LOC: END 12:26
PROVIDERS: ATTEND Internal Medicine Gastroenterology
DX: K44.9 Diaphragmatic hernia without obstruction or gangrene (principal); K29.50 Unspecified chronic gastritis without bleeding
CPT/HCPCS: 43239; 88342 ×2; 88305 ×2; J2250; J0171; J1200; J1610; J2310; J2405; J3010; J3490

== ENCOUNTER → 2017-12-07 | Outpatient (CLI) | payer MEDICARE, OTHER ==
--- NOTE | 2017-12-08 08:23 | RADIOLOGY REPORT (SQ) ---
EXAM DESCRIPTION: PET CT SKULL/THIGH COMPLETED DATE/TIME: 12/07/2017 8:06 pm REASON FOR STUDY: LUNG CANCER C34.12 MALIGNANT NEOPLASM OF UPPER LOBE, LEFT BRONCHUS OR GRAHAM COMPARISON: 08/17/2017 and 05/11/2017. RADIONUCLIDE AND DOSE: 10.0 mCi F18 FDG The route of agent administration: Intravenous FASTING BLOOD SUGAR: 94 mg/dl CONTRAST TYPE AND DOSE: No CT contrast given. TECHNIQUE: Blood glucose level was verified. Above dose of FDG was injected intravenously. 2-D seg mented attenuation correction images were obtained from the base of the skull to the midthighs. Nonc ontrast CT images were obtained for attenuation correction and fusion with emission images. CT image s were performed without oral or intravenous contrast and are not sensitive for parenchymal lesions. A series of overlapping emission PET images were obtained. Images reviewed and manipulated at [facility] work station by the radiologist. Images stored on PACS. LIMITATIONS: None. FINDINGS: HEAD AND NECK: No areas of abnormal metabolic activity in the soft tissues of the head and neck. CHEST: Stable surgical changes. Previously seen ground-glass opacities have cleared. No areas of ab normal metabolic activity in the chest. ABDOMEN AND PELVIS: No areas of abnormal metabolic activity in the abdomen or pelvis. Expected physi ologic activity is present in the genitourinary system and bowel. PROXIMAL LOWER EXTREMITIES: No areas of abnormal metabolic activity in the soft tissues of the lower extremities. BONES: No abnormal metabolic activity in the visualized skeleton. ADDITIONAL CT FINDINGS: No additional significant findings on the noncontrast CT images. OTHER: Liver background activity mean SUV 1.75. Blood pool background activity mean SUV 1.31. IMPRESSION: UNREMARKABLE PET SCAN. PREVIOUSLY SEEN GROUND-GLASS OPACITIES IN THE RIGHT LUNG HAVE CL EARED. NO AREAS OF ABNORMAL ACTIVITY. TECHNICAL DOCUMENTATION: JOB ID: [id number] [employer]- All Rights Reserved Reading location - IP/workstation name: [email or web address]
== END ==
LOC: RAD 15:38
PROVIDERS: ATTEND Internal Medicine
DX: C34.12 Malignant neoplasm of upper lobe, left bronchus or lung (principal)
CPT/HCPCS: 78815; A9552

== ENCOUNTER 2018-01-21 10:22 | Emergency (ER) | payer MEDICARE, OTHER ==
[2018-01-21] MEDS ORDERED: OXYCODONE-ACETAMINOPHEN 5-325 MG TABLET PO ONE ×2 (10:36→19:49)
--- NOTE | 2018-01-21 10:38 | ER Document Report ---
ED Medical Screen (RME) - General Chief Complaint: Back Pain Stated Complaint: BACK PAIN Time Seen by Provider: 01/21/18 10:32 Mode of Arrival: Wheelchair Information source: Patient TRAVEL OUTSIDE OF THE [place] IN LAST 30 DAYS: No - HPI Patient complains to provider of: Back pain Onset: Yesterday Notes: 01/21/18 10:37 72-year-old female presents to the emergency room complaining of back pain after she bent over to pick something up yesterday, she denies any numbness or tingling in her extremities, no saddle anesthesia, no bowel or bladder dysfunction - Related Data Allergies/Adverse Reactions: No Known Allergies Allergy (Verified 01/21/18 10:23) Past Medical History - Social History Chew tobacco use (# tins/day): No Frequency of alcohol use: None Drug Abuse: None - Past Medical History Cardiac Medical History: Reports: Hx Hypertension Denies: Hx Coronary Artery Disease, Hx Heart Attack Pulmonary Medical History: Denies: Hx Asthma, Hx Bronchitis, Hx COPD, Hx Pneumonia Neurological Medical History: Denies: Hx Cerebrovascular Accident, Hx Seizures Renal/ Medical History: Denies: Hx Peritoneal Dialysis GI Medical History: Denies: Hx Hepatitis, Hx Hiatal Hernia, Hx Ulcer Musculoskeltal Medical History: Denies Hx Arthritis Infectious Medical History: Denies: Hx Hepatitis Past Surgical History: Reports: Other - Partial lobectomy of the right leg. Denies: Hx Hysterectomy, Hx Mastectomy, Hx Open Heart Surgery, Hx Pacemaker - Immunizations Hx Diphtheria, Pertussis, Tetanus Vaccination: No Influenza Administration Date for 04/2017 - 09/2017 Season: 04/06/18 Physical Exam - Vital signs Vitals: Temp Pulse Resp BP Pulse Ox 97.9 F 63 14 117/67 98 01/21/18 10:28 01/21/18 10:28 01/21/18 10:28 01/21/18 10:28 01/21/18 10:28 Course - Vital Signs Vital signs: Temp Pulse Resp BP Pulse Ox 97.9 F 63 14 117/67 98 01/21/18 10:28 01/21/18 10:28 01/21/18 10:28 01/21/18 10:28 01/21/18 10:28 Doctor's Discharge - Discharge Referrals: KEV WOODALL MD [Primary Care Provider] - Follow up as needed
--- NOTE | 2018-01-21 11:16 | RADIOLOGY REPORT (SQ) ---
EXAM DESCRIPTION: T SPINE AP/LAT COMPLETED DATE/TIME: 01/21/2018 10:58 am REASON FOR STUDY: PAIN COMPARISON: Lumbar spine plain films 01/21/2018 PET-CT 12/07/2017 NUMBER OF VIEWS: Two views. TECHNIQUE: AP and lateral radiographic images acquired of the thoracic spine. LIMITATIONS: None. FINDINGS: MINERALIZATION: Osteopenic ALIGNMENT: Very mild convex rightward thoracic curvature. VERTEBRAE: No fracture or bone lesion. Maintained height, normal segmentation. DISCS: No significant loss of height or significant narrowing. No large osteophytes. HARDWARE: Surgical clips in the left perihilar region with radiotherapy treatment markers MEDIASTINUM AND SOFT TISSUES: Normal heart size and aortic contour. No soft tissue abnormality. VISUALIZED LUNG GOLDEN: Clear. OTHER: No other significant finding. IMPRESSION: No thoracic compression deformity. No gross lytic or blastic lesions. TECHNICAL DOCUMENTATION: JOB ID: [id number] [employer]- All Rights Reserved Reading location - IP/workstation name: [email or web address]
--- NOTE | 2018-01-21 11:17 | RADIOLOGY REPORT (SQ) ---
EXAM DESCRIPTION: L SPINE WHOLE COMPLETED DATE/TIME: 01/21/2018 10:58 am REASON FOR STUDY: PAIN COMPARISON: Thoracic spine two views same date PET-CT 12/07/2017 NUMBER OF VIEWS: Five views including obliques. TECHNIQUE: AP, lateral, oblique, and sacral radiographic images acquired of the lumbar spine. LIMITATIONS: None. FINDINGS: MINERALIZATION: Osteopenic SEGMENTATION: Normal. No transitional anatomy. ALIGNMENT: Normal. VERTEBRAE: Maintained height. No fracture or worrisome bone lesion. DISCS: Disc space loss of height at L4-5 POSTERIOR ELEMENTS: Pedicles and facets are intact. No pars defect or posterior arch defects. Bilat eral facet arthropathy at L3-4, L4-5, and L5-S1 HARDWARE: None in the spine. PARASPINAL SOFT TISSUES: Normal. PELVIS: Did not included in the field of view. SI joints are unremarkable OTHER: No other significant finding. IMPRESSION: Degenerative disc changes L4-5. Lower lumbar facet arthropathy. No acute changes. No gross lytic or blastic lesions TECHNICAL DOCUMENTATION: JOB ID: [id number] [employer]- All Rights Reserved Reading location - IP/workstation name: [email or web address]
[2018-01-21] MEDS ORDERED: OXYCODONE HCL IR 5 MG TABLET PO ONE (12:03)
[2018-01-21 13:09] LABS: ANION GAP 12 (5-19); BLOOD UREA NITROGEN 18 mg/dL (7-20); CALCIUM 8.6 mg/dL (8.4-10.2); CARBON DIOXIDE 29 mmol/L (22-30); CHLORIDE 103 mmol/L (98-107); GLUCOSE 84 mg/dL (75-110); POTASSIUM 4.6 mmol/L (3.6-5.0); SODIUM 143.5 mmol/L (137-145)
--- NOTE | 2018-01-21 18:44 | ER Document Report ---
ED Neck/Back Problem - General Chief Complaint: Back Pain Stated Complaint: BACK PAIN Time Seen by Provider: 01/21/18 10:32 Mode of Arrival: Wheelchair Notes: Patient is complaining of lower, lumbar back pain since yesterday. 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 She is able to walk but it is painful to do so and she requires assistance. She has not had anything like this happen before. Patient does have a history of stage IV lung cancer operated on 3 years ago, apparently successfully as she is on no further treatments and has not been told of any recurrence. She does not have any neurologic deficits. Does not have any saddle anesthesia. No loss of control of bladder or bowel function. Has not been sick recently. Has not had any fevers. Belatedly learned from patient and that patient has an appointment to see a back doctor, orthopedist?, Neurosurgeon?, Tomorrow and was sent to the emergency department to get MRIs of her back. I was not made aware of this request, plan plan until I was initially discussing discharge with the patient and her . TRAVEL OUTSIDE OF THE [place] IN LAST 30 DAYS: No - Related Data Allergies/Adverse Reactions: No Known Allergies Allergy (Verified 01/21/18 10:23) Past Medical History - General Information source: Patient - Social History Smoking Status: Never Smoker Chew tobacco use (# tins/day): No Frequency of alcohol use: None Drug Abuse: None Family History: Reviewed & Not Pertinent, Malignancy Patient has suicidal ideation: No Patient has homicidal ideation: No - Past Medical History Cardiac Medical History: Reports: Hx Hypertension Malignancy Medical History: Reports: Hx Lung Cancer, Other - Thyroid cancer Musculoskeletal Medical History: Reports Hx Arthritis Infectious Medical History: Denies: Hx Hepatitis Past Surgical History: Reports: Hx Thyroid Surgery, Other - Partial lobectomy of the right leg - Immunizations Hx Diphtheria, Pertussis, Tetanus Vaccination: No Hx Pneumococcal Vaccination: 04/05/15 Review of Systems - Review of Systems Notes: REVIEW OF SYSTEMS: CONSTITUTIONAL : Denies fever. EENT: Denies eye, ear, nose or mouth or throat pain or other symptoms. CARDIOVASCULAR: Denies chest pain. RESPIRATORY: Denies cough, chest congestion, or shortness of breath. GASTROINTESTINAL: Denies abdominal pain or nausea, vomiting, or diarrhea. GENITOURINARY: Denies difficulty or painful urinating, urinary frequency, blood in urine. MUSCULOSKELETAL: Has back pain in the lower back, primarily in the region overlying the sacrum. SKIN: Denies rash or skin lesions. NEUROLOGICAL: Denies LOC or altered mental status. Denies headache. Denies sensory loss or motor deficits. No loss of bladder or bowel function. No neurologic deficits. ALL OTHER SYSTEMS REVIEWED AND NEGATIVE. Physical Exam - Vital signs Vitals: Temp Pulse Resp BP Pulse Ox 97.9 F 63 14 117/67 98 01/21/18 10:28 01/21/18 10:28 01/21/18 10:28 01/21/18 10:28 01/21/18 10:28 Interpretation: Normal - Notes Notes: PHYSICAL EXAMINATION: GENERAL: Well-appearing, in no acute distress. Appears uncomfortable for her to move. HEAD: Atraumatic, normocephalic. EYES: Pupils equal round and reactive to light, extraocular movements intact. ENT: oropharynx clear without exudates. Moist mucous membranes. NECK: Normal range of motion, supple. LUNGS: Breath sounds clear and equal bilaterally. HEART: Regular rate and rhythm without murmurs. ABDOMEN: Soft, nontender. No guarding or rebound. No masses. BACK: Tender in the lumbar region of the back, midline, but no other tenderness throughout entire remaining back. EXTREMITIES: Normal range of motion without pain. NEUROLOGICAL: Normal speech, uncomfortable appearing gait. Normal sensory, motor, and reflex exams. Awake, alert, and oriented x3. PSYCH: Normal mood, normal affect. SKIN: Warm, dry, no rashes. Course - Vital Signs Vital signs: Temp Pulse Resp BP Pulse Ox 97.6 F 51 L 15 108/59 L 96 01/21/18 14:02 01/21/18 14:02 01/21/18 14:02 01/21/18 14:02 01/21/18 14:02 - Laboratory Result Diagrams: 01/21/18 12:32 Discharge - Discharge Clinical Impression: Back pain Condition: Stable Disposition: HOME, SELF-CARE Additional Instructions: LOW BACK PAIN: Three out of every four people will have an episode of disabling back pain during their lifetime. Most commonly the pain is due to straining of the muscles and ligaments in the low back. Usual treatment includes: (1) Rest on a firm surface. Avoid lying on your stomach. (2) Ice pack the painful area. After a few days, gentle heat may be used intermittently to relax the area, or ice packs can be continued. (3) Medication may be needed -- muscle relaxers and antiinflammatory medicines are commonly used. (4) As the back improves, exercises are prescribed to strengthen the back and abdominal muscles. Your doctor will advise you on the proper care for your back at each stage in your recovery. You may be better in a few days -- or healing may take several weeks. If new symptoms of a "herniated disc" (radiation of pain, numbness, or tingling down the back of the leg or weakness in the leg) occur, you should be re-examined. Further testing may be necessary. ORAL NARCOTIC MEDICATION: You have been given a prescription for pain control. This medication is a narcotic. It's best taken with food, as nausea can result if taken on an empty stomach. Don't operate machinery or drive within six hours of taking this medication. Do not combine this medicine with alcohol, or with any medication which can cause sedation (such as cold tablets or sleeping pills) unless you get permission from the physician. Narcotics tend to cause constipation. If possible, drink plenty of fluids and eat a diet high in fiber and fruits. Take your medications that you have at home for pain and for muscle relaxation. FOLLOW-UP CARE: If you have been referred to a physician for follow-up care, call the physician s office for an appointment as you were instructed or within the next two days. If you experience worsening or a significant change in your symptoms, notify the physician immediately or return to the Emergency Department at any time for re-evaluation. Follow-up tomorrow with your back surgeon with your MRI results. Referrals: KEV WOODALL MD [Primary Care Provider] - Follow up as needed
--- NOTE | 2018-01-21 19:53 | RADIOLOGY REPORT (SQ) ---
EXAM DESCRIPTION: MRI LUMBAR SPINE COMBO COMPLETED DATE/TIME: 01/21/2018 7:07 pm REASON FOR STUDY: Lumbar back pain, Hx CVA lung COMPARISON: None. TECHNIQUE: Sagittal and Axial imaging includes T1, T1 post gadolinium, T2, STIR and gradient echo se quences. Coronal T2/HASTE imaging. CONTRAST TYPE AND DOSE: 8 mL Prohance. RENAL FUNCTION: GFR > 60. LIMITATIONS: None. FINDINGS: No enhancing lesions. No epidural fluid collections. Mild -moderate degenerative disc di sease throughout the lumbar spine with mild global disc bulging at all levels and small central protr usions, no high-grade compressive lesion or stenosis. No spondylolisthesis. Spinal cord signal is n ormal. ENHANCEMENT: No abnormal enhancement. OTHER: No other significant findings. IMPRESSION: No enhancing lesions. No epidural fluid collections. No high-grade compressive lesion o r stenosis TECHNICAL DOCUMENTATION: JOB ID: [id number] [id number] 2010 [employer]- All Rights Reserved Reading location - IP/workstation name: [email or web address]
[2018-01-21 20:41] VITALS: BP 111/66
--- NOTE | 2018-01-21 21:53 | RADIOLOGY REPORT (SQ) ---
EXAM DESCRIPTION: MRI THORACIC SPINE COMBO COMPLETED DATE/TIME: 01/21/2018 7:07 pm REASON FOR STUDY: Lower back pain, Hx cancer lung COMPARISON: 10/05/2015 TECHNIQUE: Sagittal and Axial imaging includes T1, T2, STIR and gradient echo sequences. T1 post ga dolinium sequences. CONTRAST TYPE AND DOSE: 8 mL Prohance. RENAL FUNCTION: GFR > 60. LIMITATIONS: None. FINDINGS: Similar chronic kyphotic deformity at the T3-4 level. No acute marrow edema or fracture. No epidural fluid collection. No abnormal enhancement. Spinal cord signal is normal. ENHANCEMENT: No abnormal enhancement. OTHER: Chronic left upper lobe parenchymal nodularity- scarring. IMPRESSION: Similar chronic kyphotic deformity at the T3-4 level. No acute marrow edema or fracture . No epidural fluid collection. No abnormal enhancement. Spinal cord signal is normal. TECHNICAL DOCUMENTATION: JOB ID: [id number] [place]-72 2010 [employer]- All Rights Reserved Reading location - IP/workstation name: [email or web address]
== END 2018-01-21 20:41 | disposition home or self-care (01) ==
LOC: ER 10:22
DX: M54.9 Dorsalgia, unspecified (principal); I10 Essential (primary) hypertension; Z85.118 Personal history of other malignant neoplasm of bronchus and lung; Z85.850 Personal history of malignant neoplasm of thyroid
CPT/HCPCS: 99283; 36415; 80048; 72157; 72158; 72110; 72070; A9576; A9270 ×2

== ENCOUNTER → 2018-03-17 | Outpatient (CLI) | payer MEDICARE, OTHER ==
--- NOTE | 2018-03-18 09:03 | RADIOLOGY REPORT (SQ) ---
EXAM DESCRIPTION: PET CT SKULL/THIGH COMPLETED DATE/TIME: 03/17/2018 7:33 pm REASON FOR STUDY: MALIGNANT NEOPLASM OF UPPER LOBE, LEFT BRONCHUS OR LUNG C34.12 MALIGNANT NEOPLASM OF UPPER LOBE, LEFT BRONCHUS OR GRAHAM COMPARISON: 12/07/2017 RADIONUCLIDE AND DOSE: 11.0 mCi F18 FDG The route of agent administration: Intravenous FASTING BLOOD SUGAR: 84 mg/dl CONTRAST TYPE AND DOSE: No CT contrast given. TECHNIQUE: Blood glucose level was verified. Above dose of FDG was injected intravenously. 2-D seg mented attenuation correction images were obtained from the base of the skull to the midthighs. Nonc ontrast CT images were obtained for attenuation correction and fusion with emission images. CT image s were performed without oral or intravenous contrast and are not sensitive for parenchymal lesions. A series of overlapping emission PET images were obtained. Images reviewed and manipulated at [facility] work station by the radiologist. Images stored on PACS. LIMITATIONS: None. FINDINGS: HEAD AND NECK: No areas of abnormal metabolic activity in the soft tissues of the head and neck. CHEST: No areas of abnormal metabolic activity in the chest. ABDOMEN AND PELVIS: No areas of abnormal metabolic activity in the abdomen or pelvis. Expected physi ologic activity is present in the genitourinary system and bowel. PROXIMAL LOWER EXTREMITIES: No areas of abnormal metabolic activity in the soft tissues of the lower extremities. BONES: No abnormal metabolic activity in the visualized skeleton. ADDITIONAL CT FINDINGS: Stable non hypermetabolic partially calcified left apical nodule. Mild dilat ation of the ascending aorta 4.2 cm. OTHER: No other significant findings. IMPRESSION: No evidence of local recurrence or metastatic disease. TECHNICAL DOCUMENTATION: JOB ID: [id number] [employer]- All Rights Reserved Reading location - IP/workstation name: [email or web address]
== END ==
LOC: RAD 16:05
PROVIDERS: ATTEND Internal Medicine
DX: C34.12 Malignant neoplasm of upper lobe, left bronchus or lung (principal)
CPT/HCPCS: 78815; A9552

== ENCOUNTER → 2018-07-21 | Outpatient (CLI) | payer MEDICARE, OTHER ==
--- NOTE | 2018-07-21 11:02 | RADIOLOGY REPORT (SQ) ---
EXAM DESCRIPTION: CT CHEST WITH COMPLETED DATE/TIME: 07/21/2018 10:12 am REASON FOR STUDY: LUNG CA (C34.12) C34.12 MALIGNANT NEOPLASM OF UPPER LOBE, LEFT BRONCHUS OR GRAHAM COMPARISON: PET-CT 03/17/2018 TECHNIQUE: CT scan of the chest performed using helical scanning technique with dynamic intravenous contrast injection. Images reviewed with lung, soft tissue and bone windows. Reconstructed coronal and sagittal MPR and MIP images reviewed. All images stored on PACS. All CT scanners at this facility use dose modulation, iterative reconstruction, and/or weight based d osing when appropriate to reduce radiation dose to as low as reasonably achievable (ALARA). [facility]: Dose Right [facility]: CareDose [facility]: Dose Right [facility]: Teradose 4D [facility]: Kambit CONTRAST TYPE AND DOSE: See separate report of the same date. RENAL FUNCTION: See separate report. RADIATION DOSE: . LIMITATIONS: None. FINDINGS: LUNGS AND PLEURA: Stable partially calcified nodule left apex. Stable bronchiectasis and scarring in the left base. No developing nodules or infiltrate. HILAR AND MEDIASTINAL STRUCTURES: No identified masses or abnormal nodes. HEART AND VASCULAR STRUCTURES: Stable ascending aorta 4.2 cm. HARDWARE: None in the chest. UPPER ABDOMEN: See separate report of the CT of the abdomen. THYROID AND OTHER SOFT TISSUES: No masses. No adenopathy. BONES: Nothing acute. Old compression fracture T4. OTHER: No other significant finding. IMPRESSION: No evidence of local recurrence or metastatic disease. TECHNICAL DOCUMENTATION: JOB ID: [id number] Quality ID # [id number]: Final reports with documentation of one or more dose reduction techniques (e.g., Au tomated exposure control, adjustment of the mA and/or kV according to patient size, use of iterative reconstruction technique) 2010 [employer]- All Rights Reserved Reading location - IP/workstation name: [email or web address]
--- NOTE | 2018-07-21 12:20 | RADIOLOGY REPORT (SQ) ---
EXAM DESCRIPTION: CT ABD/PELVIS WITH IV ONLY COMPLETED DATE/TIME: 07/21/2018 10:12 am REASON FOR STUDY: LUNG CA (C34.12) C34.12 MALIGNANT NEOPLASM OF UPPER LOBE, LEFT BRONCHUS OR GRAHAM COMPARISON: 10/10/2017. PET-CT 03/17/2018. TECHNIQUE: CT scan of the abdomen and pelvis performed using helical scanning technique with dynamic intravenous contrast injection. No oral contrast. Images reviewed with lung, soft tissue, and bone windows. Reconstructed coronal and sagittal MPR images reviewed. Delayed images for evaluation of the urinary system also acquired. All images stored on PACS. All CT scanners at this facility use dose modulation, iterative reconstruction, and/or weight based d osing when appropriate to reduce radiation dose to as low as reasonably achievable (ALARA). [facility]: Dose Right [facility]: CareDose [facility]: Dose Right [facility]: Teradose 4D [facility]: eVenues CONTRAST TYPE AND DOSE: contrast/concentration: Isovue 350.00 mg/ml; Total Contrast Delivered: 53.0 ml; Total Saline Delivered: 55.0 ml RENAL FUNCTION: Creatinine 1.2 RADIATION DOSE: CT Rad equipment meets quality standard of care and radiation dose reduction techniq ues were employed. CTDIvol: 4.4 - 4.5 mGy. DLP: 570 mGy-cm.. LIMITATIONS: None. FINDINGS: LOWER CHEST: See separate report of the CT of the chest. LIVER: Stable subcentimeter low-density subdiaphragmatic lesion too small to characterize. SPLEEN: Normal size. No focal lesions. PANCREAS: No masses. No significant calcifications. No adjacent inflammation or peripancreatic fluid collections. Pancreatic duct not dilated. GALLBLADDER: No identified stones by CT criteria. No inflammatory changes to suggest cholecystitis. ADRENAL GLANDS: No significant masses or asymmetry. RIGHT KIDNEY AND URETER: No solid masses. No significant calcifications. No hydronephrosis or hyd roureter. LEFT KIDNEY AND URETER: No solid masses. No significant calcifications. No hydronephrosis or hydr oureter. AORTA AND VESSELS: No aneurysm. RETROPERITONEUM: No retroperitoneal adenopathy, hemorrhage or masses. BOWEL AND PERITONEAL CAVITY: No masses or inflammatory changes. No free fluid or peritoneal masses. APPENDIX: Normal. PELVIS: No mass. No free fluid. Normal bladder. ABDOMINAL WALL: No masses. No hernias. BONES: Nothing acute. OTHER: No other significant finding. IMPRESSION: No evidence of metastatic disease. TECHNICAL DOCUMENTATION: JOB ID: [id number] Quality ID # [id number]: Final reports with documentation of one or more dose reduction techniques (e.g., Au tomated exposure control, adjustment of the mA and/or kV according to patient size, use of iterative reconstruction technique) 2010 [employer]- All Rights Reserved Reading location - IP/workstation name: [email or web address]
== END ==
LOC: RAD 09:26
PROVIDERS: ATTEND Physician Assistant Medical
DX: C34.12 Malignant neoplasm of upper lobe, left bronchus or lung (principal)
CPT/HCPCS: 71260; 74177; 82565

== ENCOUNTER → 2018-09-03 | Outpatient (CLI) | payer MEDICARE, OTHER ==
--- NOTE | 2018-09-04 12:00 | WOMENS IMAGING REPORT ---
EXAM DESCRIPTION: 3D SCREENING MAMMO BILAT COMPLETED DATE/TIME: 09/03/2018 11:00 am REASON FOR STUDY: ROUTINE 3D BILATERAL SCREENING,Z12.31 Z12.31 ENCNTR SCREEN MAMMOGRAM FOR MALIGNAN T NEOPLASM OF [place] COMPARISON: Multiple since 2013 TECHNIQUE: Standard craniocaudal and mediolateral oblique views of each breast recorded using digita l acquisition and breast tomosynthesis. LIMITATIONS: None. FINDINGS: No masses, calcifications or architectural distortion. No areas of suspicion. Read with the assistance of CAD. .[facility] - R2 Cenova Version 1.3 .[facility] Imaging - R2 Cenova Version 2.1 .[facility] Imaging - R2 Cenova Version 2.4 .[facility] - R2 Cenova Version 2.4 .[facility] - R2 Detective Investigator Version 9.2 IMPRESSION: NORMAL MAMMOGRAM. BIRADS 1. BREAST DENSITY: d. The breasts are extremely dense, which lowers the sensitivity of mammography. BIRAD: 1 NEGATIVE RECOMMENDATION: ROUTINE SCREENING COMMENT: The patient has been notified of the results by letter per MQSA requirements. Additional no tification policies are in place for contacting patient with suspicious or incomplete findings. Quality ID #225: The [employer] recommends an annual screening mammogram for women aged 40 years or over. This facility utilizes a reminder system to ensure that all patients receive reminder letters, and/or direct phone calls for appointments. This includes reminders for routine scr eening mammograms, diagnostic mammograms, or other Breast Imaging Interventions when appropriate. Th is patient will be placed in the appropriate reminder system. The [employer] (ACR) has developed recommendations for screening MRI of the breast s in certain patient populations, to be used in conjunction with mammography. Breast MRI surveillanc e may be appropriate for women with more than 20% lifetime risk of developing breast cancer as deter mined by genetic testing, significant family history of the disease, or history of mantle radiation f or Hodgkins Disease. ACR Practice Guidelines 2008. DBT Technology DBT is a type of tomographic mammography. With conventional mammography, overlapping breast tissue ma y make lesions difficult to detect, even with good compression. DBT uses an x-ray tube that rotates a round the breast, taking images at different angles. These images are then combined to create thin sl ices of the breast that the radiologist can view as a 3D reconstruction. The [employer] unit can perform full-field digital mammograms (2D imaging); or DBT (3D imaging); or both, in a combination mode that quickly performs both the mammogram and the tomosynthesis scan while the breast is still compressed. PQRS 6045F: Fluoroscopic imaging is not utilized for breast tomosynthesis. TECHNICAL DOCUMENTATION: FINDING NUMBER: (1) ASSESSMENT: (1) JOB ID: [id number] [employer]- All Rights Reserved Reading location - IP/workstation name: [email or web address]
== END ==
LOC: WI 10:32
PROVIDERS: ATTEND Physician Assistant
DX: Z12.31 Encounter for screening mammogram for malignant neoplasm of breast (principal)
CPT/HCPCS: 77063; 77067

== ENCOUNTER → 2018-10-19 | Outpatient (CLI) | payer MEDICARE, OTHER ==
--- NOTE | 2018-10-19 13:33 | RADIOLOGY REPORT (SQ) ---
EXAM DESCRIPTION: CT CHEST WITH; CT ABD/PELVIS WITH IV ONLY COMPLETED DATE/TIME: 10/19/2018 8:43 am REASON FOR STUDY: MALIGNANT NEOPLASM OF UPPER LOBE, LEFT BRONCHUS OR LUNG C34.12 MALIGNANT NEOPLASM OF UPPER LOBE, LEFT BRONCHUS OR GRAHAM CONTRAST TYPE AND DOSE: contrast/concentration: Isovue 350.00 mg/ml; Total Contrast Delivered: 54.0 ml; Total Saline Delivered: 65.0 ml RENAL FUNCTION: Creatinine 1.1c 07/21/2018 COMPARISON: None. TECHNIQUE: CT scan of the chest performed using helical scanning technique with dynamic intravenous contrast injection. Images reviewed with lung, soft tissue and bone windows. Reconstructed coronal a nd sagittal MPR images reviewed. All images stored on PACS. All CT scanners at this facility use dose modulation, iterative reconstruction, and/or weight based d osing when appropriate to reduce radiation dose to as low as reasonably achievable (ALARA). [facility]: Dose Right [facility]: CareDose [facility]: Dose Right [facility]: Teradose 4D [facility]: Scalix RADIATION DOSE: CT Rad equipment meets quality standard of care and radiation dose reduction techniq ues were employed. CTDIvol: 4.4 - 4.5 mGy. DLP: 558 mGy-cm. . LIMITATIONS: None. FINDINGS: AXILLAE: No adenopathy. CHEST WALL: No masses. No subcutaneous air. LUNGS: Limited airspace disease in the left upper lobe medially and limited bronchiectasis. Pleural/ parenchymal scarring in this area. These findings are stable. PLEURA: No effusions. No calcifications. THYROID: Partial thyroidectomy by history. HILAR AND MEDIASTINAL STRUCTURES: No identified masses or abnormal nodes. AORTA AND GREAT VESSELS: Stable 41 mm aneurysm of the ascending aorta PULMONARY ARTERIES: No identified pulmonary emboli. Study not optimized for the pulmonary arteries. HEART: No pericardial effusion. HARDWARE AND LIFELINES: None. BONES: Stable compression changes in the upper thoracic spine. OTHER: No other significant finding. IMPRESSION: Stable aneurysm of the ascending aorta. Stable pleural/ parenchymal scarring and bronch iectasis in the left upper lobe. COMPARISON: None. RADIATION DOSE: CT Rad equipment meets quality standard of care and radiation dose reduction techniq ues were employed. CTDIvol: 4.4 - 4.5 mGy. DLP: 558 mGy-cm. mGy. TECHNIQUE: CT scan of the abdomen and pelvis performed with intravenous and oral contrast using melinda nola scanning technique with dynamic intravenous contrast injection. Images reviewed with lung, soft tissue and bone windows. Reconstructed coronal and sagittal MPR images reviewed. Delayed images for evaluation of the urinary system also acquired and evaluated. All images stored on PACS. All CT scanners at this facility use dose modulation, iterative reconstruction, and/or weight based d osing when appropriate to reduce radiation dose to as low as reasonably achievable (ALARA). [facility]: Dose Right [facility]: SureCare [facility]: Dose Right [facility]: Teradose 4D [facility]: Scalix FINDINGS: LIVER: Normal size. No masses. No dilated ducts. SPLEEN: Normal size. No focal lesions. PANCREAS: Atrophic. No mass. No ductal dilatation. GALLBLADDER: No identified stones by CT criteria. No inflammatory changes to suggest cholecystitis. ADRENAL GLANDS: No significant masses or asymmetry. RIGHT KIDNEY AND URETER: No solid masses. No significant calcifications. No hydronephrosis or hyd roureter. LEFT KIDNEY AND URETER: No solid masses. No significant calcifications. No hydronephrosis or hydr oureter. AORTA AND VESSELS: No aneurysm. No dissection. Renal arteries, SMA, celiac without stenosis. RETROPERITONEUM: No retroperitoneal adenopathy, hemorrhage or masses. LARGE AND SMALL BOWEL: No dilatation. No masses. No wall thickening. APPENDIX: Normal. ABDOMINAL WALL: No hernia or masses. PERITONEAL CAVITY: No free air. No free fluid. No peritoneal implants or masses. PELVIS: No mass or free fluid. Normal bladder. BONES: No significant or acute findings. OTHER: No other significant finding. IMPRESSION: There is no evidence of abdominal or pelvic metastases. TECHNICAL DOCUMENTATION: JOB ID: [id number] Quality ID # [id number]: Final reports with documentation of one or more dose reduction techniques (e.g., Au tomated exposure control, adjustment of the mA and/or kV according to patient size, use of iterative reconstruction technique) 2010 [employer]- All Rights Reserved Reading location - IP/workstation name: [email or web address]
== END ==
LOC: RAD 08:17
PROVIDERS: ATTEND Internal Medicine
DX: C34.12 Malignant neoplasm of upper lobe, left bronchus or lung (principal); I71.2 Thoracic aortic aneurysm, without rupture; J47.9 Bronchiectasis, uncomplicated
CPT/HCPCS: 71260; 74177; 82565

== ENCOUNTER → 2019-01-19 | Outpatient (CLI) | payer MEDICARE, OTHER ==
--- NOTE | 2019-01-19 12:44 | RADIOLOGY REPORT (SQ) ---
EXAM DESCRIPTION: CT CHEST WITH COMPLETED DATE/TIME: 01/19/2019 10:32 am REASON FOR STUDY: LUNG CA (C34.12) C34.12 MALIGNANT NEOPLASM OF UPPER LOBE, LEFT BRONCHUS OR GRAHAM COMPARISON: 10/19/2018 TECHNIQUE: CT scan of the chest performed using helical scanning technique with dynamic intravenous contrast injection. Images reviewed with lung, soft tissue and bone windows. Reconstructed coronal and sagittal MPR and MIP images reviewed. All images stored on PACS. All CT scanners at this facility use dose modulation, iterative reconstruction, and/or weight based d osing when appropriate to reduce radiation dose to as low as reasonably achievable (ALARA). [facility]: Dose Right [facility]: CareDose [facility]: Dose Right [facility]: Teradose 4D [facility]: [employer] CONTRAST TYPE AND DOSE: 54 cc Omnipaque 350 RENAL FUNCTION: Creatinine 1.0 RADIATION DOSE: . LIMITATIONS: None. FINDINGS: LUNGS AND PLEURA: There is persistent consolidation and pleuroparenchymal change within th e medial left upper thorax. There is increased size of the largest component of consolidation measur ing approximately 4.7 x 2.5 cm, previously approximately 4.0 x 2.2 cm (series 6, image 18). There ar e additional adjacent nodular opacities which demonstrate interval increase in size as well. For ref erence there is a pleural-based nodule measuring 14 mm (series 6, image 29), previously measuring 9 m m. Grossly unchanged bronchiectasis. No significant pleural effusion. No pneumothorax. Unremarkab le right hemithorax aside from mild middle lobe bronchiectasis and linear scarring. HILAR AND MEDIASTINAL STRUCTURES: Postsurgical changes the left hilum with increased conspicuity of s oft tissue density in the hilum and associated calcifications. For reference left hilar soft tissue density measures approximately 2.6 x 2.0 cm, (series 2, image 21) previously 1.9 x 1.4 cm. Unremarka ble right hilum. HEART AND VASCULAR STRUCTURES: Stable aneurysmal dilation of the ascending aorta measuring up to 41 m m. 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 HARDWARE: None in the chest. UPPER ABDOMEN: See separate report of the CT of the abdomen. THYROID AND OTHER SOFT TISSUES: Subcutaneous gas within the left chest wall, likely intravenous and i atrogenic. Additional gas noted within right internal jugular vein, also likely iatrogenic. Unremar kable thyroid. BONES: No acute bony abnormality. No discrete lytic or blastic osseous lesions. Stable compression deformity of the T3 vertebral body with exaggerated associated thoracic kyphosis. OTHER: No other significant finding. IMPRESSION: 1. Increased size of left hilar and suprahilar soft tissue masses as above and suspicio us for residual/recurrent disease. PET-CT could be considered for further characterization. 2. Stable ascending aortic dilation measuring up to 41 mm. 3. 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 TECHNICAL DOCUMENTATION: JOB ID: [id number] Quality ID # 436: Final reports with documentation of one or more dose reduction techniques (e.g., Au tomated exposure control, adjustment of the mA and/or kV according to patient size, use of iterative reconstruction technique) 2010 [employer]- All Rights Reserved Reading location - IP/workstation name: [email or web address]
--- NOTE | 2019-01-19 12:49 | RADIOLOGY REPORT (SQ) ---
EXAM DESCRIPTION: CT ABD/PELVIS WITH IV ONLY COMPLETED DATE/TIME: 01/19/2019 10:32 am REASON FOR STUDY: LUNG CA (C34.12) C34.12 MALIGNANT NEOPLASM OF UPPER LOBE, LEFT BRONCHUS OR GRAHAM COMPARISON: None. TECHNIQUE: CT scan of the abdomen and pelvis performed using helical scanning technique with dynamic intravenous contrast injection. No oral contrast. Images reviewed with lung, soft tissue, and bone windows. Reconstructed coronal and sagittal MPR images reviewed. 10/19/2018 All images stored on PACS. All CT scanners at this facility use dose modulation, iterative reconstruction, and/or weight based d osing when appropriate to reduce radiation dose to as low as reasonably achievable (ALARA). [facility]: Dose Right [facility]: CareDose [facility]: Dose Right [facility]: Teradose 4D [facility]: [employer] CONTRAST TYPE AND DOSE: contrast/concentration: Isovue 350.00 mg/ml; Total Contrast Delivered: 54.0 ml; Total Saline Delivered: 65.0 ml RENAL FUNCTION: Creatinine 1.0 RADIATION DOSE: CT Rad equipment meets quality standard of care and radiation dose reduction techniq ues were employed. CTDIvol: 4.4 - 4.5 mGy. DLP: 572 mGy-cm.. LIMITATIONS: None. FINDINGS: LOWER CHEST: See separate report of the CT of the chest. LIVER: Stable subcentimeter hepatic dome lesion, likely cyst but difficult to characterize. No new h epatic lesions. No intrahepatic ductal dilation. SPLEEN: Normal size. No focal lesions. PANCREAS: No masses. No significant calcifications. No adjacent inflammation or peripancreatic fluid collections. Pancreatic duct not dilated. GALLBLADDER: No identified stones by CT criteria. No inflammatory changes to suggest cholecystitis. ADRENAL GLANDS: No significant masses or asymmetry. RIGHT KIDNEY AND URETER: No solid masses. No significant calcifications. No hydronephrosis or hyd roureter. LEFT KIDNEY AND URETER: No solid masses. No significant calcifications. No hydronephrosis or hydr oureter. AORTA AND VESSELS: Aortoiliac atherosclerosis without aneurysm. No dissection. Renal arteries, SMA, c eliac without stenosis. RETROPERITONEUM: No retroperitoneal adenopathy, hemorrhage or masses. BOWEL AND PERITONEAL CAVITY: No masses or inflammatory changes. No free fluid or peritoneal masses. APPENDIX: Not visualized. PELVIS: Decompressed urinary bladder. No adenopathy. No significant fluid. ABDOMINAL WALL: No masses. No hernias. BONES: No acute bony abnormality. No discrete lytic or blastic osseous lesions. Lower lumbar facet arthropathy. OTHER: No other significant finding. IMPRESSION: 1. No evidence of intra-abdominal/pelvic metastatic disease. 2. No evidence of acute intra-abdominal/pelvic process. TECHNICAL DOCUMENTATION: JOB ID: [id number] Quality ID # 436: Final reports with documentation of one or more dose reduction techniques (e.g., Au tomated exposure control, adjustment of the mA and/or kV according to patient size, use of iterative reconstruction technique) 2010 [employer]- All Rights Reserved Reading location - IP/workstation name: [email or web address]
== END ==
LOC: RAD 09:33
PROVIDERS: ATTEND Physician Assistant Medical
DX: C34.12 Malignant neoplasm of upper lobe, left bronchus or lung (principal)
CPT/HCPCS: 71260; 74177; 82565

== ENCOUNTER → 2019-01-23 | Outpatient (CLI) | payer MEDICARE, OTHER ==
--- NOTE | 2019-01-23 12:53 | RADIOLOGY REPORT (SQ) ---
EXAM DESCRIPTION: MRI HEAD COMBO COMPLETED DATE/TIME: 01/23/2019 9:01 am REASON FOR STUDY: (C34.12)MALIGNANT NEOPLASM OF UPPER LOBE, LEFT BRONCHUS OR LUNG C34.12 MALIGNANT NEOPLASM OF UPPER LOBE, LEFT BRONCHUS OR GRAHAM COMPARISON: None. TECHNIQUE: Multiplanar imaging includes noncontrasted T1, T2, FLAIR, diffusion with ADC map and post gadolinium contrast T1 sequences. Images stored on PACS. CONTRAST TYPE AND DOSE: mL RENAL FUNCTION: GFR > 60. LIMITATIONS: None. FINDINGS: ANATOMY: No anomalies. Normal vascular flow voids. Pituitary fossa normal. CSF SPACES: Normal in size and contour. No hemorrhage. CEREBRUM: Evidence of metastatic disease with numerous tiny enhancing nodules. The most conspicuous is in the right frontal lobe and measures 1 cm: Series 11, image 135. Associated cerebral edema. S maller lesions are seen in the left temporal lobe (series 11, image 122 and series 11, image 98). Al so high right posterior parietal series 11, image 170. Spotty multifocal FLAIR hyperintensities othe rwise suggestive of small vessel disease. POSTERIOR FOSSA: No signal alteration. No hemorrhage. No edema, masses, or mass effect. Internal may tory canals, cerebellopontine angles, mastoids normal. No enhancing lesions. No abnormal enhancement post contrast. DIFFUSION IMAGING: Negative for acute or subacute infarction. ORBITS: No masses. Globes normal. PARANASAL SINUSES: No fluid levels. Mucosa normal. OTHER: No other significant finding. IMPRESSION: 1. Bilateral cerebral metastases as above. EVIDENCE OF ACUTE STROKE: NO. TECHNICAL DOCUMENTATION: JOB ID: [id number] [employer]- All Rights Reserved Reading location - IP/workstation name: [email or web address]
== END ==
LOC: RAD 08:17
PROVIDERS: ATTEND Physician Assistant Medical
DX: C34.12 Malignant neoplasm of upper lobe, left bronchus or lung (principal)
CPT/HCPCS: 82565; 70553; A9576

== ENCOUNTER → 2019-01-24 | Outpatient (CLI) | payer MEDICARE, OTHER ==
--- NOTE | 2019-01-25 11:57 | RADIOLOGY REPORT (SQ) ---
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 PET scan dated 03/17/2018. RADIONUCLIDE AND DOSE: 10 mCi F18 FDG The route of agent administration: Intravenous FASTING BLOOD SUGAR: 68 mg/dl CONTRAST TYPE AND DOSE: No CT contrast given. TECHNIQUE: Blood glucose level was verified. Above dose of FDG was injected intravenously. 2-D seg mented attenuation correction images were obtained from the base of the skull to the midthighs. Nonc ontrast CT images were obtained for attenuation correction and fusion with emission images. CT image s were performed without oral or intravenous contrast and are not sensitive for parenchymal lesions. A series of overlapping emission PET images were obtained. Images reviewed and manipulated at indep [employer] work station by the radiologist. Images stored on PACS. LIMITATIONS: None. FINDINGS: HEAD AND NECK: No areas of abnormal metabolic activity in the soft tissues of the head and neck. CHEST: Indistinct mass in the medial left lung apex measuring 2.0 x 3.0 cm (axial series 3, image 56) . Mean SUV 9.96. Mass in the posterior left upper lobe measuring 1.3 cm (axial series 3, image 57). Mean SUV 3.98. Mass in the posterior left upper lobe measuring 1.1 cm (axial series 3, image 65). Mean SUV 3.61. Focal area of increased activity in the left suprahilar region, difficult to delineate on noncontrast CT imaging (axial series 3, image 68). Mean SUV 6.39. Left hilar lymph node measuring 2.0 x 2.3 cm (axial series 3, image 73). Mean SUV 9.19. ABDOMEN AND PELVIS: No areas of abnormal metabolic activity in the abdomen or pelvis. Expected physi ologic activity is present in the genitourinary system and bowel. PROXIMAL LOWER EXTREMITIES: No areas of abnormal metabolic activity in the soft tissues of the lower extremities. BONES: Focal area of increased activity in the medial left 10th rib adjacent to the vertebral body wi th no abnormal findings on CT (axial series 3, image 94). Mean SUV 3.3. No other abnormal metabolic activity in the visualized skeleton. ADDITIONAL CT FINDINGS: No additional significant findings on the noncontrast CT images. OTHER: Background blood pool activity mean SUV 1.44. Background liver activity mean SUV 1.81. No ot her significant findings. IMPRESSION: 1. NUMEROUS AREAS OF ABNORMAL ACTIVITY IN THE LEFT LUNG WELL LEFT HILAR ADENOPATHY, CONSISTENT WITH MALIGNANCY. 2. FOCAL AREA OF INCREASED ACTIVITY IN THE MEDIAL LEFT 10TH RIB ADJACENT TO THE VERTEBRAL BODY WITH N O DISCRETE FINDING ON CT. THIS COULD BE RELATED TO DEGENERATIVE CHANGES AT THE COSTOVERTEBRAL JUNCTI ON. A SMALL BONY METASTASIS CANNOT BE EXCLUDED. 3. NO ABNORMAL FINDINGS ON THE REMAINDER OF THE STUDY. TECHNICAL DOCUMENTATION: JOB ID: [id number] [employer]- All Rights Reserved Reading location - IP/workstation name: [email or web address]
== END ==
LOC: RAD 19:14
PROVIDERS: ATTEND Physician Assistant Medical
DX: C34.12 Malignant neoplasm of upper lobe, left bronchus or lung (principal)
CPT/HCPCS: 78815; A9552

== ENCOUNTER → 2019-03-26 | Outpatient (CLI) | payer MEDICARE, OTHER ==
--- NOTE | 2019-03-26 10:46 | RADIOLOGY REPORT (SQ) ---
EXAM DESCRIPTION: MRI HEAD COMBO COMPLETED DATE/TIME: 03/26/2019 10:01 am REASON FOR STUDY: C34.12 MALIGNANT NEOPLASM OF UPPER LOBE, LEFT BRONCHUS OR LUNG C34.12 MALIGNANT N EOPLASM OF UPPER LOBE, LEFT BRONCHUS OR GRAHAM COMPARISON: 01/23/2019 TECHNIQUE: Multiplanar imaging includes noncontrasted T1, T2, FLAIR, diffusion with ADC map and post gadolinium contrast T1 sequences. Images stored on PACS. CONTRAST TYPE AND DOSE: 10 mL Dotarem. RENAL FUNCTION: Not indicated. ACR Type II contrast agent associated with few, if any, unconfounded cases of NSF LIMITATIONS: None. FINDINGS: ANATOMY: No anomalies. Normal vascular flow voids. Pituitary fossa normal. CSF SPACES: Normal in size and contour. No hemorrhage. CEREBRUM: Small metastasis previously described have decreased in size. The largest in the right par ietal lobe now measures 6.2 mm. Significant decrease in the surrounding vasogenic edema. Tiny lesio n in the right parietal lobe now measures 3.1 mm compared to 3.9 mm on prior study. The left tempora l lobe lesion measures 4.3 mm in greatest diameter compared to 5.9 mm on prior study. No new lesions are identified. Fairly extensive periventricular and subcortical white matter changes are stable. POSTERIOR FOSSA: No signal alteration. No hemorrhage. No edema, masses, or mass effect. Internal may tory canals, cerebellopontine angles, mastoids normal. No enhancing lesions. No abnormal enhancement post contrast. DIFFUSION IMAGING: Negative for acute or subacute infarction. ORBITS: No masses. Globes normal. PARANASAL SINUSES: No fluid levels. Mucosa normal. OTHER: No other significant finding. IMPRESSION: Findings are consistent with positive response to therapy. Intracranial metastatic lesi ons remain but have significantly decreased in size. There is surrounding vasogenic edema is improve d. No new lesions. Small vessel ischemic changes remain. EVIDENCE OF ACUTE STROKE: NO. TECHNICAL DOCUMENTATION: JOB ID: [id number] [employer]- All Rights Reserved Reading location - IP/workstation name: [email or web address]
== END ==
LOC: RAD 09:08
PROVIDERS: ATTEND Internal Medicine
DX: C34.12 Malignant neoplasm of upper lobe, left bronchus or lung (principal)
CPT/HCPCS: 82565; 70553; A9576

== ENCOUNTER 2019-04-23 08:40 | Day surgery (SDC) | payer MEDICARE, OTHER ==
[~2019-04-23 08:40] MED LIST changes: -DIPHENHYDRAMINE HCL 50 MG/ML VIAL ONE; -EPINEPHRINE INJ 1 MG/10 ML DISP.SYRIN ONE; -FENTANYL CITRATE INJ/PF 100 MCG/2 ML AMPUL ONE; -FLUMAZENIL INJ 0.5 MG/5 ML VIAL ONE; -GLUCAGON,HUMAN RECOMB 1 MG INJ ONE; -MIDAZOLAM 2 MG/2 ML INJ ONE; -NALOXONE HCL INJ/PF 0.4 MG/1 ML SDV ONE; -ONDANSETRON HCL INJ/PF 4 MG/2 ML SDV ONE; +PROPOFOL INJ 200 MG/20 ML VIAL IV ONE
[2019-04-23 10:12] VITALS: BP 126/60
--- NOTE | 2019-04-23 11:50 | Operative Report ---
Operative Report DATE OF SURGERY: 04/23/19 Operative Report: The risks, benefits and alternatives of the procedure including the risk of bleeding, perforation requiring surgery have been explained to the patient in detail and informed consent has been obtained. The patient is taken back to the endoscopy suite and placed in a left, lateral decubital position. Timeout was called. Propofol medication is administered. Rectal examination is done which did not reveal any masses, tears or fissures. An Olympus videoscope was introduced into the patient's rectum. Scope was then carefully advanced all the way to the cecum. The cecum was identified by the usual anatomical landmarks including the ileocecal valve as well as the appendiceal office. Photodocumentation is obtained. Scope was then sequentially pulled back via the various segments of the colon including the ascending colon, hepatic flexure, transverse colon, splenic flexure, descending colon and finally into the rectosigmoid portions of the colon. Retroflexion maneuver is performed. PREOPERATIVE DIAGNOSIS: Blood in stool POSTOPERATIVE DIAGNOSIS: Internal hemorrhoids. Normal screening. 10-year surveillance colonoscopy OPERATION: Diagnostic colonoscopy SURGEON: RED ACOSTA ANESTHESIA: LMAC TISSUE REMOVED OR ALTERED: None. COMPLICATIONS: None. ESTIMATED BLOOD LOSS: None. INTRAOPERATIVE FINDINGS: As noted above. PROCEDURE: Patient tolerated the procedure well. No immediate postprocedure complications are noted. Patient is discharged in good condition. Discharge date 04/23/2019. Discharge diet: Regular. Discharge activity: Regular. 2 to 3-week follow-up to discuss findings. Patient is instructed to call the office or proceed to the emergency room should there be any further problems or questions.
== END 2019-04-23 10:15 | disposition home or self-care (01) ==
LOC: END 08:40
PROVIDERS: ATTEND Internal Medicine Gastroenterology
DX: K64.8 Other hemorrhoids (principal); K62.5 Hemorrhage of anus and rectum; Z85.118 Personal history of other malignant neoplasm of bronchus and lung
CPT/HCPCS: 45378; 00811; J2704; 811

== ENCOUNTER → 2019-07-16 | Outpatient (CLI) | payer MEDICARE, OTHER ==
--- NOTE | 2019-07-16 10:58 | RADIOLOGY REPORT (SQ) ---
EXAM DESCRIPTION: MRI HEAD COMBO COMPLETED DATE/TIME: 07/16/2019 10:12 am REASON FOR STUDY: C34.12 MALIGNANT NEOPLASM OF UPPER LOBE, LEFT BRONCHUS OR LUNG C34.12 MALIGNANT N EOPLASM OF UPPER LOBE, LEFT BRONCHUS OR GRAHAM COMPARISON: 03/26/2019, 01/23/2019 TECHNIQUE: Multiplanar imaging includes noncontrasted T1, T2, FLAIR, diffusion with ADC map and post gadolinium contrast T1 sequences. Images stored on PACS. CONTRAST TYPE AND DOSE: 10 mL Dotarem. RENAL FUNCTION: Not indicated. ACR Type II contrast agent associated with few, if any, unconfounded cases of NSF LIMITATIONS: None. FINDINGS: ANATOMY: No anomalies. Normal vascular flow voids. Pituitary fossa normal. CSF SPACES: Normal in size and contour. No hemorrhage. CEREBRUM: Sulci and gyri normal in size and contour. Further interval decrease in size of bilateral cortical metastatic lesions, a right posterior frontal lobe lesion measuring 4 mm (series 13, image 1 72), a punctuate high right parietal lesion (series 13, image 188), and a left temporal lesion measur ing 4 mm (series 13, image 107). There are lesions seen on prior examinations dated 01/23/2019 which are no longer appreciated, for example a low lateral left temporal lesion. Underlying scattered petra ventricular and deep white matter T2/FLAIR hyperintensity. POSTERIOR FOSSA: No signal alteration. No hemorrhage. No edema, masses, or mass effect. Internal may tory canals, cerebellopontine angles, mastoids normal. No enhancing lesions. No abnormal enhancement post contrast. DIFFUSION IMAGING: Negative for acute or subacute infarction. ORBITS: No masses. Globes normal. PARANASAL SINUSES: No fluid levels. Mucosa normal. OTHER: No other significant finding. IMPRESSION: 1. Further interval decrease in size of bilateral cortical metastatic lesions, a right p osterior frontal lobe lesion measuring 4 mm (series 13, image 172), a punctuate high right parietal l esion (series 13, image 188), and a left temporal lesion measuring 4 mm (series 13, image 107). Ther e are lesions seen on prior examinations dated 01/23/2019 which are no longer appreciated, for example a low lateral left temporal lesion. Findings are consistent with continued response to treatment. No evidence of new metastatic lesions. 2. Underlying small vessel white matter disease. EVIDENCE OF ACUTE STROKE: NO. TECHNICAL DOCUMENTATION: JOB ID: [id number] [employer]- All Rights Reserved Reading location - IP/workstation name: [email or web address]
--- NOTE | 2019-07-16 13:42 | RADIOLOGY REPORT (SQ) ---
EXAM DESCRIPTION: CT CHEST WITH COMPLETED DATE/TIME: 07/16/2019 9:33 am REASON FOR STUDY: C34.12 MALIGNANT NEOPLASM OF UPPER LOBE, LEFT BRONCHUS OR LUNG C34.12 MALIGNANT N EOPLASM OF UPPER LOBE, LEFT BRONCHUS OR GRAHAM COMPARISON: None. TECHNIQUE: CT scan of the chest performed using helical scanning technique with dynamic intravenous contrast injection. Images reviewed with lung, soft tissue and bone windows. Reconstructed coronal and sagittal MPR and MIP images reviewed. All images stored on PACS. All CT scanners at this facility use dose modulation, iterative reconstruction, and/or weight based d osing when appropriate to reduce radiation dose to as low as reasonably achievable (ALARA). [facility]: Dose Right [facility]: CareDose [facility]: Dose Right [facility]: Teradose 4D [facility]: [employer] CONTRAST TYPE AND DOSE: 58 mL Omnipaque 350- low osmolar. RENAL FUNCTION: Creatinine 1.2 milligrams/deciliter. RADIATION DOSE: DLP 579.09 mGy cm LIMITATIONS: None. FINDINGS: LUNGS AND PLEURA: The nodular subpleural areas of consolidation in the medial left apex an d the 2.6 x 2 cm left hilar mass that were described on the prior CT are no longer present ; the calc ifications in the left hilum persist as is the focal area of bronchiectasis in the medial left apex. There are new multifocal centrilobular ground-glass and nodular opacities in the right upper, left u pper and left lower lobes ; these include the 1.5 x 1.2 cm ground-glass nodular opacity in the left l ower lobe (image 35 of series 2). These opacities could be infectious in etiology. There is no pleu ral effusion or pneumothorax. HILAR AND MEDIASTINAL STRUCTURES: No mediastinal or hilar adenopathy. HEART AND VASCULAR STRUCTURES: Unchanged aneurysmal dilatation of the ascending aorta. The left [facility] hiocephalic vein is occluded and there prominent collateral vessels on the left side of the thorax. HARDWARE: None in the chest. UPPER ABDOMEN: Refer to the separate report of the CT of the abdomen. THYROID AND OTHER SOFT TISSUES: No masses or adenopathy BONES: Unchanged chronic compression deformity of the T3 vertebral body with osseous fusion of the T3 , T4 and T5 vertebral bodies and focal kyphotic angulation of the thoracic spine centered at the T3 l evel. There is no acute fracture or osseous lesion. OTHER: No other finding. IMPRESSION: The nodular subpleural areas of consolidation in the medial left apex and the 2.6 x 2 cm left hilar mass that were described on the prior CT are no longer present. New multifocal centrilobular ground-glass and nodular opacities in the right upper, left upper and le ft lower lobes ; these include the 1.5 x 1.2 cm ground-glass nodular opacity in the left lower lobe ( image 35 of series 2). These opacities could be infectious in etiology. TECHNICAL DOCUMENTATION: JOB ID: [id number] Quality ID # 436: Final reports with documentation of one or more dose reduction techniques (e.g., Au tomated exposure control, adjustment of the mA and/or kV according to patient size, use of iterative reconstruction technique) 2010 [employer]- All Rights Reserved Reading location - IP/workstation name: [email or web address]
--- NOTE | 2019-07-16 14:55 | RADIOLOGY REPORT (SQ) ---
EXAM DESCRIPTION: CT ABD/PELVIS WITH IV ONLY COMPLETED DATE/TIME: 07/16/2019 9:33 am REASON FOR STUDY: C34.12 MALIGNANT NEOPLASM OF UPPER LOBE, LEFT BRONCHUS OR LUNG C34.12 MALIGNANT N EOPLASM OF UPPER LOBE, LEFT BRONCHUS OR GRAHAM COMPARISON: None. TECHNIQUE: CT scan of the abdomen and pelvis performed using helical scanning technique with dynamic intravenous contrast injection. No oral contrast. Images reviewed with lung, soft tissue, and bone windows. Reconstructed coronal and sagittal MPR images reviewed. Delayed images for evaluation of the urinary system also acquired. All images stored on PACS. All CT scanners at this facility use dose modulation, iterative reconstruction, and/or weight based d osing when appropriate to reduce radiation dose to as low as reasonably achievable (ALARA). [facility]: Dose Right [facility]: CareDose [facility]: Dose Right [facility]: Teradose 4D [facility]: [employer] CONTRAST TYPE AND DOSE: Contrast/concentration: Isovue 350.00 mg/ml; Total Contrast Delivered: 58.0 ml; Total Saline Delivered: 65.0 ml RENAL FUNCTION: Creatinine 1.2 milligrams/deciliter. RADIATION DOSE: CT Rad equipment meets quality standard of care and radiation dose reduction techniq ues were employed. CTDIvol: 4.4 - 4.5 mGy. DLP: 579 mGy-cm.. LIMITATIONS: None. FINDINGS: LOWER CHEST: Refer to the separate report of the CT of the chest. LIVER: The 10 x 6 mm hypodense lesion in the hepatic dome (image 3 of series 3) is stable and could r epresent a cyst. The portal veins are patent. SPLEEN: No splenomegaly or splenic mass. PANCREAS: No abnormality of the pancreas. GALLBLADDER: No abnormality of the gallbladder that is apparent on CT. ADRENAL GLANDS: No abnormality of the adrenal glands RIGHT KIDNEY AND URETER: No solid masses. No calcifications. No hydronephrosis or hydroureter. LEFT KIDNEY AND URETER: No solid masses. No calcifications. No hydronephrosis or hydroureter. AORTA AND VESSELS: No aneurysm or dissection of the abdominal aorta. The abdominopelvic vasculature is patent. RETROPERITONEUM: No retroperitoneal adenopathy, hemorrhage or mass. BOWEL AND PERITONEAL CAVITY: No bowel obstruction, bowel wall thickening, or pericolonic/ perienteric inflammation. No mesenteric adenopathy, free intraperitoneal fluid or mesenteric/ omental inflammat ion. APPENDIX: Normal. PELVIS: The urinary bladder is nondistended. There is no abnormality of the pelvis that is apparent on CT. ABDOMINAL WALL: No masses or hernias. BONES: No fracture or osseous lesion. OTHER: No other finding. IMPRESSION: No acute intra-abdominal abnormality. No intra-abdominal or pelvic metastases. TECHNICAL DOCUMENTATION: JOB ID: [id number] Quality ID # 436: Final reports with documentation of one or more dose reduction techniques (e.g., Au tomated exposure control, adjustment of the mA and/or kV according to patient size, use of iterative reconstruction technique) 2010 [employer]- All Rights Reserved Reading location - IP/workstation name: [email or web address]
== END ==
LOC: RAD 08:54
PROVIDERS: ATTEND Internal Medicine
DX: C34.12 Malignant neoplasm of upper lobe, left bronchus or lung (principal)
CPT/HCPCS: 82565; 70553; 71260; 74177; A9576

== ENCOUNTER → 2019-08-09 | Outpatient (CLI) | payer MEDICARE, OTHER ==
--- NOTE | 2019-08-09 11:45 | WOMENS IMAGING REPORT ---
EXAM DESCRIPTION: BONE DENSITY HIP/SPINE COMPLETED DATE/TIME: 08/09/2019 10:37 am REASON FOR STUDY: M81.0 AGE-RELATED OSTEOPOROSIS WITHOUT CURRENT PATHOLOGICAL FRACTURE M81.0 AGE-RE LATED OSTEOPOROSIS W/O CURRENT PATHOLOGICAL FRAC COMPARISON: 2018. Baseline study 2004 TECHNIQUE: Dual-Energy X-ray Absorptiometry (DEXA) of the AP Spine and Hip. LIMITATIONS: None. FINDINGS: LUMBAR SPINE: The bone mineral density (BMD) measured from L1-L4 in the AP projection correlates with a T-score of -1.9, which is osteopenia as defined by the World Health Organization. BMD Change vs Baseline: 11% HIP: The bone mineral density (BMD) measured in the left hip correlates with a T-score of -3.2, which is o steoporosis as defined by the World Health Organization. BMD Change vs Baseline: -6.6% 10 year Fracture Risk Assessment: Major Osteoporotic Fracture: Not available. Hip Fracture: Not available. IMPRESSION: 1. LUMBAR SPINE WHO CLASSIFICATION: OSTEOPENIA. 2. HIP WHO CLASSIFICATION: OSTEOPOROSIS. OVERALL ASSESSMENT: WHO CLASSIFICATION: OSTEOPOROSIS. COMMENT: The World Health Organization defines low BMD as follows: T-score: Normal: Greater than -1.0 Osteopenia: Between -1.0 and -2.5 Osteoporosis: Less than -2.5 without fractures Established osteoporosis: Less than -2.5 with fractures In general, you may wish to consider: Diagnosis Treatment Follow-up DEXA Normal BMD Prevention 2-3 years Osteopenia Prevention/Therapy 1-2 years Osteoporosis Therapy Yearly TECHNICAL DOCUMENTATION: JOB ID: [id number] [email or web address]- All Rights Reserved Reading location - IP/workstation name: [email or web address]
== END ==
LOC: WI 10:10
PROVIDERS: ATTEND Physician Assistant Medical
DX: M81.0 Age-related osteoporosis without current pathological fracture (principal)
CPT/HCPCS: 77080

== ENCOUNTER → 2019-12-06 | Outpatient (CLI) | payer MEDICARE, OTHER ==
--- NOTE | 2019-12-06 09:16 | RADIOLOGY REPORT (SQ) ---
EXAM DESCRIPTION: MRI HEAD COMBO IMAGES COMPLETED DATE/TIME: 12/06/2019 8:41 am REASON FOR STUDY: MALIGNANT NEOPLASM OF UPPER LOBE, LEFT BRONCHUS OR LUNG C34.12 MALIGNANT NEOPLASM OF UPPER LOBE, LEFT BRONCHUS OR GRAHAM COMPARISON: 07/16/2019. TECHNIQUE: Multiplanar imaging includes noncontrasted T1, T2, FLAIR, and Diffusion with ADC map seq uences. Contrast enhanced T1 images. Images stored on PACS. CONTRAST TYPE AND DOSE: 10 mL Dotarem. RENAL FUNCTION: Not indicated. ACR Type II contrast agent associated with few, if any, unconfounded cases of NSF LIMITATIONS: None. FINDINGS: ANATOMY: No anomalies. Normal vascular flow voids. Pituitary fossa normal. CSF SPACES: Normal size and contour. No hemorrhage. CEREBRUM: A few high-signal intensity lesions scattered throughout the white matter on FLAIR imaging with distribution suggesting chronic microvascular ischemic change. Sulci and gyri normal in size and contour. No hemorrhage. Faint 3 mm foci of enhancement are noted in the right frontal lobe and in the left temporal lobe. Please see post-contrast series 13 images 135 and 97/248. These lesions loo k stable. No developing lesions. POSTERIOR FOSSA: No signal alteration. No hemorrhage. No edema, masses or mass effect. Internal audit ory canals, cerebello-pontine angles, mastoids normal. DIFFUSION: Negative for acute or subacute infarction. ORBITS: No masses. Globes normal. PARANASAL SINUSES: No fluid levels. Mucosa normal. OTHER: No other significant finding. IMPRESSION: 1. Small enhancing lesions in the cerebrum, nonprogressive since July. 3 mm or less. No new lesi ons. 2. Mild small vessel disease otherwise noted. EVIDENCE OF ACUTE STROKE: NO. TECHNICAL DOCUMENTATION: JOB ID: [id number] 2010 [employer]- All Rights Reserved Reading location - IP/workstation name: [email or web address]
--- NOTE | 2019-12-06 09:31 | RADIOLOGY REPORT (SQ) ---
EXAM DESCRIPTION: CT CHEST WITH; CT ABD/PELVIS WITH IV ONLY IMAGES COMPLETED DATE/TIME: 12/06/2019 8:04 am REASON FOR STUDY: MALIGNANT NEOPLASM OF UPPER LOBE, LEFT BRONCHUS OR LUNG C34.12 MALIGNANT NEOPLASM OF UPPER LOBE, LEFT BRONCHUS OR GRAHAM COMPARISON: 07/16/2019. Additional studies going back to 2015. CONTRAST TYPE AND DOSE: contrast/concentration: Isovue 350.00 mg/ml; Total Contrast Delivered: 59.0 ml; Total Saline Delivered: 65.0 ml RENAL FUNCTION: GFR > 60. TECHNIQUE: CT scan of the chest performed using helical scanning technique with dynamic intravenous contrast injection. Images reviewed with lung, soft tissue and bone windows. Reconstructed coronal a nd sagittal MPR images reviewed. All images stored on PACS. CT scan of the abdomen and pelvis performed with intravenous and without oral contrastusing helical s sanford technique with dynamic intravenous contrast injection. Images reviewed with lung, soft tissu e and bone windows. Reconstructed coronal and sagittal MPR images reviewed. Delayed images for eval uation of the urinary system also acquired and evaluated. All images stored on PACS. All CT scanners at this facility use dose modulation, iterative reconstruction, and/or weight based d osing when appropriate to reduce radiation dose to as low as reasonably achievable (ALARA). [facility]: Dose Right [facility]: CareDose [facility]: Dose Right [facility]: Teradose 4D [facility]: Smart [employer] RADIATION DOSE: CT Rad equipment meets quality standard of care and radiation dose reduction techniq ues were employed. CTDIvol: 4.4 - 4.5 mGy. DLP: 609 mGy-cm. . LIMITATIONS: None. FINDINGS: CHEST: LUNGS AND PLEURA: Scarring in the left apex with associated calcifications, chronic. Multifocal righ t greater than left areas of previously noted mixed airspace and ground-glass opacity have resolved. No developing lesions. No pleural disease. HILAR AND MEDIASTINAL STRUCTURES: No identified masses or abnormal nodes. HEART AND VASCULAR STRUCTURES: Cardiomegaly with no significant coronary calcification. HARDWARE: None. THYROID AND OTHER SOFT TISSUES: Absent or atrophic thyroid. No chest wall mass or axillary adenopath y. BONES: Chronic upper thoracic compression deformities. 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 No change. No developing lytic or blastic bone lesion. OTHER: No other significant finding. ABDOMEN AND PELVIS: LIVER: Grossly nonenhancing liver dome subcentimeter low density focus is stable. Patchy enhancement in the right lobe peripherally (See immediate post-contrast series 2 image 24 and adjacent slices). Not seen on delayed repeat scanning through the abdomen and pelvis. Not clearly identified on imagi ng going back to 2014. This could be due to differences in technique, however. SPLEEN: Normal size. No focal lesions. PANCREAS: No masses. No significant calcifications. No adjacent inflammation or peripancreatic fluid collections. Pancreatic duct not dilated. GALLBLADDER: No identified stones by CT criteria. No inflammatory changes to suggest cholecystitis. ADRENAL GLANDS: No significant masses or asymmetry. RIGHT KIDNEY AND URETER: No solid masses. No significant calcification. No hydronephrosis or hydroure ter. LEFT KIDNEY AND URETER: No solid masses. No significant calcification. No hydronephrosis or hydrouret er. AORTA AND VESSELS: Atherosclerotic without aneurysm or dissection. No venous clot detected. RETROPERITONEUM: No adenopathy or mass detected. BOWEL AND PERITONEAL CAVITY: Fair amount of stool throughout large bowel. No small bowel obstruction ascites or abnormal gas evident. APPENDIX: Normal. ABDOMINAL WALL: No masses. No hernias. PELVIS: No mass or free fluid. Normal bladder. BONES: No significant or acute findings. OTHER: No other significant finding. IMPRESSION: 1. Scarring in the lungs. No suspicious lesions appreciated today. Resolved infiltrates compared to most recent prior. 2. Focus of enhancement in the right hepatic lobe. Possibly a hemangioma or similar benign lesion bu t not reliably identified on priors. Consider dedicated liver MRI. TECHNICAL DOCUMENTATION: JOB ID: [id number] Quality ID # 436: Final reports with documentation of one or more dose reduction techniques (e.g., Au tomated exposure control, adjustment of the mA and/or kV according to patient size, use of iterative reconstruction technique) 2010 [employer]- All Rights Reserved Reading location - IP/workstation name: [email or web address]
== END ==
LOC: RAD 07:31
PROVIDERS: ATTEND Internal Medicine
DX: C34.12 Malignant neoplasm of upper lobe, left bronchus or lung (principal); I51.7 Cardiomegaly
CPT/HCPCS: 82565; 70553; 71260; 74177; A9576

== ENCOUNTER → 2019-12-21 | Outpatient (CLI) | payer MEDICARE, OTHER ==
--- NOTE | 2019-12-22 12:50 | RADIOLOGY REPORT (SQ) ---
EXAM DESCRIPTION: PET CT SKULL/THIGH IMAGES COMPLETED DATE/TIME: 12/21/2019 3:14 pm REASON FOR STUDY: MALIGNANT NEOPLASM OF UPPER LOBE, LEFT BRONCHUS OR LUNG (C34.12) C34.12 MALIGNANT NEOPLASM OF UPPER LOBE, LEFT BRONCHUS OR GRAHAM COMPARISON: CT chest abdomen pelvis 12/06/2019 PET-CT 01/24/2019, 03/17/2018, 12/07/2017 RADIONUCLIDE AND DOSE: 7.4 mCi F18 FDG The route of agent administration: Intravenous FASTING BLOOD SUGAR: 78 mg/dl CONTRAST TYPE AND DOSE: No CT contrast given. TECHNIQUE: Blood glucose level was verified. Above dose of FDG was injected intravenously. 2-D seg mented attenuation correction images were obtained from the base of the skull to the midthighs. Nonc ontrast CT images were obtained for attenuation correction and fusion with emission images. CT image s were performed without oral or intravenous contrast and are not sensitive for parenchymal lesions. A series of overlapping emission PET images were obtained. [facility] by the radiologist. Images stored on PACS. LIMITATIONS: None. FINDINGS: HEAD AND NECK: No areas of abnormal metabolic activity in the soft tissues of the head and neck. CHEST: No areas of abnormal metabolic activity in the chest. Surgical clips at the left hilum post l eft lower lobectomy. ABDOMEN AND PELVIS: No areas of abnormal metabolic activity in the abdomen or pelvis. Expected physi ologic activity is present in the genitourinary system and bowel. No hypermetabolic liver lesions ar e identified. PROXIMAL LOWER EXTREMITIES: No areas of abnormal metabolic activity in the soft tissues of the lower extremities. BONES: No abnormal metabolic activity in the visualized skeleton. ADDITIONAL CT FINDINGS: Ascending thoracic aorta 4.4 cm diameter. Small hiatal hernia. Normal appen faizan. Normal size female pelvic organs OTHER: No other significant findings. IMPRESSION: No hypermetabolic lesions worrisome for recurrent lung cancer. TECHNICAL DOCUMENTATION: JOB ID: [id number] 2010 [employer]- All Rights Reserved Reading location - IP/workstation name: [email or web address]
== END ==
LOC: RAD 09:13
PROVIDERS: ATTEND Internal Medicine
DX: C34.12 Malignant neoplasm of upper lobe, left bronchus or lung (principal)
CPT/HCPCS: 78815; A9552

== ENCOUNTER → 2020-02-03 | Outpatient (CLI) | payer MEDICARE, OTHER ==
--- NOTE | 2020-02-03 12:12 | WOMENS IMAGING REPORT ---
EXAM DESCRIPTION: 3D SCREENING MAMMO BILAT IMAGES COMPLETED DATE/TIME: 02/03/2020 11:46 am REASON FOR STUDY: Z12.31 ENCNTR SCREEN MAMMOGRAM FOR MALIGNANT NEOPLASM OF BREAST Z12.31 ENCNTR SCR EEN MAMMOGRAM FOR MALIGNANT NEOPLASM OF [place] COMPARISON: 2016, 2018 EXAM PARAMETERS: Views: Standard craniocaudal and mediolateral oblique views of each breast recorded using digital acquisition and breast tomosynthesis. Read with the assistance of CAD. .[facility] - R2 Category Director Version 9.2 LIMITATIONS: None. FINDINGS: No suspicious masses, suspicious calcifications or architectural distortion. No areas of c oncern. IMPRESSION: NEGATIVE MAMMOGRAM. BIRADS 1. BREAST DENSITY: d. The breasts are extremely dense, which lowers the sensitivity of mammography. BIRAD: ASSESSMENT: 1 NEGATIVE RECOMMENDATION: ROUTINE SCREENING COMMENT: The patient has been notified of the results by letter per MQSA requirements. Additional no tification policies are in place for contacting patient with suspicious or incomplete findings. Quality ID #225: The [employer] recommends an annual screening mammogram for women aged 40 years or over. This facility utilizes a reminder system to ensure that all patients receive reminder letters, and/or direct phone calls for appointments. This includes reminders for routine scr eening mammograms, diagnostic mammograms, or other Breast Imaging Interventions when appropriate. Th is patient will be placed in the appropriate reminder system. TECHNICAL DOCUMENTATION: FINDING NUMBER: (1) ASSESSMENT: (1) JOB ID: [id number] 2010 [employer]- All Rights Reserved Reading location - IP/workstation name: [email or web address]-[email or web address]
== END ==
LOC: WI 10:42
PROVIDERS: ATTEND Physician Assistant
DX: Z12.31 Encounter for screening mammogram for malignant neoplasm of breast (principal)
CPT/HCPCS: 77063; 77067

== ENCOUNTER → 2020-03-23 | Outpatient (CLI) | payer MEDICARE, OTHER ==
--- NOTE | 2020-03-23 11:14 | RADIOLOGY REPORT (SQ) ---
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 Images stored on PACS. CONTRAST TYPE AND DOSE: 10 mL Prohance. RENAL FUNCTION: Not indicated. ACR Type II contrast agent associated with few, if any, unconfounded cases of NSF LIMITATIONS: None. FINDINGS: ANATOMY: No anomalies. Normal vascular flow voids. Pituitary fossa normal. CSF SPACES: Normal in size and contour. No hemorrhage. CEREBRUM: Multiple enhancing intra-axial lesions consistent with progression of metastasis, the large st 7 x 17 mm in the left frontal lobe. There is associated vasogenic edema. No hemorrhage or midlin e shift. POSTERIOR FOSSA: 5 mm enhancing lesion right cerebellar vermis image 79 of series 15. 5 mm enhancing lesion right cerebellum image 47. DIFFUSION IMAGING: Negative for acute or subacute infarction. ORBITS: No masses. Globes normal. PARANASAL SINUSES: No fluid levels. Mucosa normal. OTHER: No other significant finding. IMPRESSION: Progressive brain metastasis. No significant mass effect. EVIDENCE OF ACUTE STROKE: NO. TECHNICAL DOCUMENTATION: JOB ID: [id number] 2010 [employer]- All Rights Reserved Reading location - IP/workstation name: [email or web address]
--- NOTE | 2020-03-23 11:32 | RADIOLOGY REPORT (SQ) ---
EXAM DESCRIPTION: CT CHEST WITH IMAGES COMPLETED DATE/TIME: 03/23/2020 9:13 am REASON FOR STUDY: C34.12 MALIGNANT NEOPLASM OF UPPER LOBE, LEFT BRONCHUS OR LUNG C34.12 MALIGNANT N EOPLASM OF UPPER LOBE, LEFT BRONCHUS OR GRAHAM C79.31 SECONDARY MALIGNANT NEOPLASM OF BRAIN COMPARISON: 12/06/2019. PET-CT 12/21/2019. TECHNIQUE: CT scan of the chest performed using helical scanning technique with dynamic intravenous contrast injection. Images reviewed with lung, soft tissue and bone windows. Reconstructed coronal and sagittal MPR and MIP images reviewed. All images stored on PACS. All CT scanners at this facility use dose modulation, iterative reconstruction, and/or weight based d osing when appropriate to reduce radiation dose to as low as reasonably achievable (ALARA). [facility]: Dose Right [facility]: CareDose [facility]: Dose Right [facility]: Teradose 4D [facility]: [employer] RENAL FUNCTION: None required. The patient is less than 50 years old. RADIATION DOSE: CT Rad equipment meets quality standard of care and radiation dose reduction techniq ues were employed. CTDIvol: 4.4 - 4.5 mGy. DLP: 588 mGy-cm. . LIMITATIONS: None. FINDINGS: LUNGS AND PLEURA: There is a new rind of tissue in the posterior left apex extending into the posterior AP window. Dimensions roughly 2.3 x 3.3 cm. Interval development of small left pleura l effusion. Status post left lower lobectomy. No suspicious findings in the right lung. HILAR AND MEDIASTINAL STRUCTURES: No identified masses or abnormal nodes. HEART AND VASCULAR STRUCTURES: Ascending aorta 4.2 cm, stable. HARDWARE: None in the chest. UPPER ABDOMEN: See separate report of the CT of the abdomen. THYROID AND OTHER SOFT TISSUES: No masses. No adenopathy. BONES: Sclerotic metastasis. Chronic compression fracture superior thoracic spine. OTHER: No other significant finding. IMPRESSION: Pulmonary findings worrisome for local recurrence left upper lobe. Stable bone metastas is. TECHNICAL DOCUMENTATION: JOB ID: [id number] Quality ID # 436: Final reports with documentation of one or more dose reduction techniques (e.g., Au tomated exposure control, adjustment of the mA and/or kV according to patient size, use of iterative reconstruction technique) 2010 [employer]- All Rights Reserved Reading location - IP/workstation name: [email or web address]
--- NOTE | 2020-03-23 12:35 | RADIOLOGY REPORT (SQ) ---
EXAM DESCRIPTION: CT ABD/PELVIS WITH IV ONLY IMAGES COMPLETED DATE/TIME: 03/23/2020 9:13 am REASON FOR STUDY: C34.12 MALIGNANT NEOPLASM OF UPPER LOBE, LEFT BRONCHUS OR LUNG C34.12 MALIGNANT N EOPLASM OF UPPER LOBE, LEFT BRONCHUS OR GRAHAM C79.31 SECONDARY MALIGNANT NEOPLASM OF BRAIN COMPARISON: 12/06/2019 TECHNIQUE: CT scan of the abdomen and pelvis performed using helical scanning technique with dynamic intravenous contrast injection. No oral contrast. Images reviewed with lung, soft tissue, and bone windows. Reconstructed coronal and sagittal MPR images reviewed. Delayed images for evaluation of the urinary system also acquired. All images stored on PACS. All CT scanners at this facility use dose modulation, iterative reconstruction, and/or weight based d osing when appropriate to reduce radiation dose to as low as reasonably achievable (ALARA). [facility]: Dose Right [facility]: CareDose [facility]: Dose Right [facility]: Teradose 4D [facility]: IR [employer] CONTRAST TYPE AND DOSE: contrast/concentration: Isovue 350.00 mmol/ml; Total Contrast Delivered: 80. 0 ml; Total Saline Delivered: 45.0 ml RENAL FUNCTION: GFR > 60. RADIATION DOSE: . LIMITATIONS: None. FINDINGS: LOWER CHEST: See separate report of the CT of the chest. LIVER: Stable subcentimeter low-density lesion in the dome. 71 HU. SPLEEN: Normal size. No focal lesions. PANCREAS: No masses. No significant calcifications. No adjacent inflammation or peripancreatic fluid collections. Pancreatic duct not dilated. GALLBLADDER: No identified stones by CT criteria. No inflammatory changes to suggest cholecystitis. ADRENAL GLANDS: No significant masses or asymmetry. RIGHT KIDNEY AND URETER: No solid masses. No significant calcifications. No hydronephrosis or hyd roureter. LEFT KIDNEY AND URETER: No solid masses. No significant calcifications. No hydronephrosis or hydr oureter. AORTA AND VESSELS: No aneurysm. The in RETROPERITONEUM: No retroperitoneal adenopathy, hemorrhage or masses. BOWEL AND PERITONEAL CAVITY: No masses or inflammatory changes. No free fluid or peritoneal masses. APPENDIX: Not visualized. PELVIS: No mass. No free fluid. Normal bladder. ABDOMINAL WALL: No masses. No hernias. BONES: No significant or acute findings. OTHER: No other significant finding. IMPRESSION: Stable solitary small hepatic lesion. No significant change. TECHNICAL DOCUMENTATION: JOB ID: [id number] Quality ID # 436: Final reports with documentation of one or more dose reduction techniques (e.g., Au tomated exposure control, adjustment of the mA and/or kV according to patient size, use of iterative reconstruction technique) 2010 [employer]- All Rights Reserved Reading location - IP/workstation name: [email or web address]
== END ==
LOC: RAD 08:41
PROVIDERS: ATTEND Physician Assistant Medical
DX: C34.12 Malignant neoplasm of upper lobe, left bronchus or lung (principal); C79.31 Secondary malignant neoplasm of brain
CPT/HCPCS: 70553; 71260; 74177; A9576

== ENCOUNTER → 2020-07-10 | Outpatient (CLI) | payer MEDICARE, OTHER ==
--- NOTE | 2020-07-10 10:29 | RADIOLOGY REPORT (SQ) ---
EXAM DESCRIPTION: CT CHEST WITH; CT ABD/PELVIS WITH IV ONLY IMAGES COMPLETED DATE/TIME: 07/10/2020 9:42 am; 07/10/2020 9:45 am REASON FOR STUDY: C34.12 C34.12 MALIGNANT NEOPLASM OF UPPER LOBE, LEFT BRONCHUS OR GRAHAM CONTRAST TYPE AND DOSE: contrast/concentration: Isovue 350.00 mmol/ml; Total Contrast Delivered: 80. 0 ml; Total Saline Delivered: 40.0 ml RENAL FUNCTION: Creatinine 1.1 COMPARISON: 03/23/2020 TECHNIQUE: CT scan of the chest performed using helical scanning technique with dynamic intravenous contrast injection. Images reviewed with lung, soft tissue and bone windows. Reconstructed coronal a nd sagittal MPR images reviewed. All images stored on PACS. All CT scanners at this facility use dose modulation, iterative reconstruction, and/or weight based d osing when appropriate to reduce radiation dose to as low as reasonably achievable (ALARA). [facility]: Dose Right [facility]: CareDose [facility]: Dose Right [facility]: Teradose 4D [facility]: Smart [employer] RADIATION DOSE: CT Rad equipment meets quality standard of care and radiation dose reduction techniq ues were employed. CTDIvol: 4.4 - 4.5 mGy. DLP: 561 mGy-cm.. LIMITATIONS: None. FINDINGS: AXILLAE: No adenopathy. CHEST WALL: No masses. No subcutaneous air. LUNGS: Soft tissue mass in the posterior left upper lobe is significant smaller in size. Soft tissue that remains is best demonstrated on series 2 images 8 through 11. This most likely represents pleu ral thickening. Small amount of residual tumor cannot be excluded. Largest measurement is 2.9 x 1.3 cm. Ground-glass opacity in the posterior right upper lobe. Most likely atelectasis. Occasional n onspecific subpleural nodule these are unchanged. PLEURA: No effusions. No calcifications. THYROID: No masses or significant asymmetry. HILAR AND MEDIASTINAL STRUCTURES: No identified masses or abnormal nodes. AORTA AND GREAT VESSELS: Stable dilatation of the ascending aorta. Largest diameter is 4.0 cm. PULMONARY ARTERIES: No identified pulmonary emboli. Study not optimized for the pulmonary arteries. HEART: No pericardial effusion. HARDWARE AND LIFELINES: None. BONES: Bony metastases are again noted. The sclerotic lesion in T3 has slightly increased in size. Chronic compression fracture T4 is unchanged. Sclerotic lesion in the cervical spine is stable. OTHER: No other significant finding. IMPRESSION: Soft tissue mass in the left apex posteriorly has decreased in size. No new lung findin gs. Bony metastasis in the body of T3 is more apparent on today's study. COMPARISON: None. RADIATION DOSE: CT Rad equipment meets quality standard of care and radiation dose reduction techniq ues were employed. CTDIvol: 4.4 - 4.5 mGy. DLP: 561 mGy-cm.mGy. TECHNIQUE: CT scan of the abdomen and pelvis performed with intravenous and oral contrast using melinda nola scanning technique with dynamic intravenous contrast injection. Images reviewed with lung, soft tissue and bone windows. Reconstructed coronal and sagittal MPR images reviewed. Delayed images for evaluation of the urinary system also acquired and evaluated. All images stored on PACS. All CT scanners at this facility use dose modulation, iterative reconstruction, and/or weight based d osing when appropriate to reduce radiation dose to as low as reasonably achievable (ALARA). [facility]: Dose Right [facility]: SureCare [facility]: Dose Right [facility]: Teradose 4D [facility]: [employer] FINDINGS: LIVER: Small hypoattenuating lesion in the dome of liver centrally is unchanged. No new f indings pure SPLEEN: Normal size. No focal lesions. PANCREAS: No masses. No significant calcifications. No adjacent inflammation or peripancreatic flui d collections. Pancreatic duct not dilated. GALLBLADDER: No identified stones by CT criteria. No inflammatory changes to suggest cholecystitis. ADRENAL GLANDS: No significant masses or asymmetry. RIGHT KIDNEY AND URETER: No solid masses. No significant calcification. No hydronephrosis or hydroure ter. LEFT KIDNEY AND URETER: No solid masses. No significant calcification. No hydronephrosis or hydrouret er. AORTA AND VESSELS: No aneurysm. No dissection. Renal arteries, SMA, celiac without stenosis. RETROPERITONEUM: No retroperitoneal adenopathy, hemorrhage or masses. LARGE AND SMALL BOWEL: No dilatation. No masses. No wall thickening. APPENDIX: Normal. ABDOMINAL WALL: No hernia or masses. PERITONEAL CAVITY: No free air. No free fluid. No peritoneal implants or masses. PELVIS: No mass or free fluid. Normal bladder. BONES: No significant or acute findings. OTHER: No other significant finding. IMPRESSION: Stable small hypoattenuating lesion in the dome of the liver. No new findings. TECHNICAL DOCUMENTATION: JOB ID: [id number] Quality ID # 436: Final reports with documentation of one or more dose reduction techniques (e.g., Au tomated exposure control, adjustment of the mA and/or kV according to patient size, use of iterative reconstruction technique) 2010 [employer]- All Rights Reserved Reading location - IP/workstation name: [email or web address]
--- NOTE | 2020-07-10 13:04 | RADIOLOGY REPORT (SQ) ---
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 RADIONUCLIDE AND DOSE: 20.9 millicuries Tc99m MDP. The route of agent administration: Intravenous. ADDITIONAL DRUGS AND DOSES: None. TECHNIQUE: Routine delayed images at 3 hour post radionuclide injection acquired of the bony skeleto n including anterior and posterior whole-body projections and additional focused images as needed. LIMITATIONS: None. FINDINGS: BONES: There is increased metabolic activity in and left posterior rib. This corresponds to a sclerotic lesion on CT consistent with metastasis. There is increased uptake in the upper thora cic spine corresponding to the sclerotic lesions demonstrated on CT. No other suspicious findings. KIDNEYS: Symmetric excretion without obstruction. OTHER: No other significant finding. IMPRESSION: Findings are suspicious for metastasis involving the upper thoracic spine and a left pos terior rib. COMMENT: Quality measure 147: Current bone scan is compared with any available plain radiographs, p rior bone scans, and CT/MRI. TECHNICAL DOCUMENTATION: JOB ID: [id number] 2010 [employer]- All Rights Reserved Reading location - IP/workstation name: [email or web address]
== END ==
LOC: RAD 08:50
PROVIDERS: ATTEND Internal Medicine
DX: C34.12 Malignant neoplasm of upper lobe, left bronchus or lung (principal); C79.51 Secondary malignant neoplasm of bone; K76.9 Liver disease, unspecified
CPT/HCPCS: 82565; 78306; 71260; 74177; A9503; Q9969